=== PATIENT | female | born 1995 | race Two or more races ===

== ENCOUNTER 2024-10-26 18:56 | Emergency (ER) | payer SELFPAY ==
[2024-10-26 19:00] VITALS: BP 139/99; PULSE 100; RESP 18; TEMP 36.6; O2SAT 98
--- NOTE | 2024-10-26 19:21 | ED_ITS ---
HPI - Extremity Injury (Lower) General Chief Complaint: Extremity Injury, Lower Stated Complaint: left ankle in the mornings Time Seen by Provider: 10/26/24 19:02 Source: patient Mode of arrival: ambulatory Limitations: no limitations History of Present Illness HPI Narrative: This is a 29-year-old female who presents to the ED for chief complaint of left anterior ankle pain ongoing over the past couple of weeks. Patient states the pain seems to be worse in the morning. 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 She has concern for possible DVT although has no history of DVT. No risk factors such as recent immobilization, surgery or use of estrogen containing medication. Pain is described as a sharp shooting pain throughout the anterior left ankle into the rouse. Denies swelling, rash, fevers, chills, numbness or weakness. Review of Systems Review of Systems: All systems as dictated in HPI Exam Narrative: GENERAL: Well-appearing, well-nourished, and in no acute distress. HEAD: Normocephalic, atraumatic. EYES: PERRLA and EOMI. ENT: Nares clear, no rhinorrhea or epistaxis. Mucous membranes moist. Oropharynx without tonsillar hypertrophy exudate or other lesions. NECK: Supple. No adenopathy or masses. CHEST: No respiratory distress. Clear to auscultation. No wheezes rales or rhonchi HEART: Regular rate and rhythm. No murmur heard. Normal peripheral pulses. ABDOMEN: Soft, nontender, nondistended, normal active bowel sounds. MSK: Normal range of motion. No edema. No calf tenderness bilaterally. No rash to the lower extremities. Neurovascularly intact bilaterally to the lower extremities. Minimal tenderness to the anterior tibialis distribution on the left anterior ankle, rouse. SKIN: Warm, dry, no rash. NEURO: Alert and oriented x4. No focal deficits. PSYCH: Normal mood and affect. Course Vital Signs Vital signs: Vital Signs Temperature 97.9 F 10/26/24 19:00 Pulse Rate 100 10/26/24 19:00 Respiratory Rate 18 10/26/24 19:00 Blood Pressure 139/99 H 10/26/24 19:00 Pulse Oximetry 98 10/26/24 19:00 Oxygen Delivery Room Air 10/26/24 19:00 Temperature 98.1 F 10/26/24 20:13 Pulse Rate 89 10/26/24 20:13 Respiratory Rate 16 10/26/24 20:13 Blood Pressure 134/87 10/26/24 20:13 Pulse Oximetry 98 10/26/24 20:13 Oxygen Delivery Room Air 10/26/24 19:00 MDM - Extremity Injury (Lower) MDM Narrative Medical decision making narrative: This is a 29-year-old female who presents to the ED for chief complaint of left anterior ankle pain over the past couple of weeks. Vitals are normal. Exam remarkable for the above. She was concern for possible blood clot, however has no clinical signs or symptoms of blood clot. Wells score 0. Presentation consistent with anterior muscle strain versus rouse splints. Patient will be discharged in stable condition. Supportive measures discussed and return precautions given. Patient is understanding and agreeable with plan for discharge with PCP follow-up. Discharge Plan Discharge Clinical Impression: Rouse splints Patient Disposition: Home Condition: Stable Instructions: Antibiotic Form, Muscle Strain (ED) Additional Instructions: Your exam today is reassuring overall. This is most likely an anterior muscle strain. This will resolve on its own. Please rest, ice, elevate the area as needed. Use heat for pain control as well. Use ibuprofen 600 mg every 6 hours as needed for pain. If you have any new or worsening symptoms please return to the ER for further evaluation. Patient Language: Swedish Follow-up/Referrals: PHYSICIAN NOT ON STAFF,NONSTAFF [Primary Care Provider] - Time of Disposition: 19:23
--- OUTSIDE RECORDS SUMMARY | 2024-10-26 19:49 | XMS_ITS | Encounter Summary ---
Author Organization [facility] Address [address] [place] [address] Care Team Providers Care Sports Recruiter Name Role Phone Charla Arriaga MD Primary Care Provider [phone] Encounter Details Date Type Department Care Team (Late st Contact Info) Description 04/24/2017 [facility] [address] [place] [address] Mayra Montana MD Screening for HIV (human immunodeficiency virus); At risk for sexually transmitted disease due to unprotected sex Social History Tobacco Use Types Packs/Day Years Used Date Smoking Tobacco: Never Smokeless Tobacco: Never Alcohol Use Standard Drinks/Week Comments Yes 1 (1 standard drink = 0.6 oz pur e alcohol) socially Sex and Gender Information Value Date Recorded Sex Assigned at Not on file Gender Identity Not on file Sexual Orientation Not on file documented as of this encounter Functional Status Functional Status Response Date of Assess ment Hearing Problems? Yes 12/12/2016 Vision Problems? No 12/12/2016 Difficulty walking? No 12/12/2016 Difficulty dressing or bathing? No 12/12/2016 Problems with daily activities? No 12/12/2016 Cognitive Status Response Date of Assessm ent Memory Problems? No 12/12/2016 documented as of this encounter Progress Notes * Mayra Montana - 04/28/2017 10:25 AM CDT Addressed this per result note for GC/Chlamydia. Please see that note. Pt received results on 04/27via phone. documented in this encounter Plan of Treatment Not on file documented as of this encounter Procedures Procedure Name Priority Date/Time Associated Diagnosis Comments HIV AG AB COMBO Routine 04/24/2017 10:02 AM CDT Screening for HIV (human immunodeficiency virus) At risk for sexually transmitted disease due to unprotected sex TREPONEMA PALLIDUM (SYPHILIS) SCREENING CASCADE Routine 04/24/2017 10:02 AM CDT At risk for sexually transmitted disease due to unprotected sex documented in this encounter Results * T PALLIDUM SCREENING CASCADE (04/24/2017 10:02 AM CDT) Treponemal Antibodies Nonreactive Nonreactive 04/24/2017 6:03 PM CDT [facility] Blood Venipuncture / Unknown 04/24/2017 10:02 AM CDT 04/24/2017 10:02 AM CDT Mayra Montana MD LAB BLOOD ORDERABLES Performing Organization Address [facility] Co de Phone Number [facility] [address] [place], [place] [phone] * HIV AG AB COMBO (04/24/2017 10:02 AM CDT) HIV Antigen Antibody Combo Non-Reacti ve Non-Reacti ve 04/24/2017 6:31 PM CDT [facility] Blood Venipuncture / Unknown 04/24/2017 10:02 AM CDT 04/24/2017 10:02 AM CDT Mayra Montana MD LAB BLOOD ORDERABLES Performing Organization Address [facility] Co de Phone Number [facility] [address] [place] [address] documented in this encounter Visit Diagnoses Diagnosis Screening for HIV (human immunodeficiency virus) Special screening examination for other specified viral diseases At risk for sexually transmitted disease due to unprotected sex documented in this encounter Care Teams Sports Recruiter Relationship Specialty Start Date End Date Charla Arriaga MD [address] [facility] [address] [place] [address] PCP - General Family Practice 06/28/21 documented as of this encounter
--- OUTSIDE RECORDS SUMMARY | 2024-10-26 19:49 | XMS_ITS | Referral Summary ---
Author Organization [facility] Address [address] [place] [address] Care Team Providers Care Devulcanizer Tender Name Role Phone Pcp-Interviewed, [place] [facility] Primar y Care Provider Allergies No known active allergies Medications valACYclovir (VALTREX) 1 gram PO tablet Take 2,000 mg by mouth. 07/02/2021 Active Active Problems Problem Noted Date Diagnosed Date Sensorineural hearing loss ( SNHL) of right ear with unrestricted hearing of left ear 06/18/2016 Social History Tobacco Use Types Packs/Day Years Used Date Smoking Tobacco: Never Assessed Housing Stability Answer Date Recorded Mortgage Payment Concerns? Not on file 10/17 [address] of [address] Lived in the Last Year Not on f ile 10/17/2021 Unstable Housing? Not on file 10/17/2021 Comments Unknown Sex and Gender Information Value Date Recorded Sex Assigned at Not on file Legal Sex Female 2:59 PM CDT Gender Identity Not on file Sexual Orientation Not on file Last Filed Vital Signs Vital Sign Reading Time Taken Comments Blood Pressure 138/92 10/17/2021 3:09 PM CDT Pulse 85 10/17/2021 3:09 PM CDT Temperature 36.9 C (98.4 F) 10/17/2021 3:09 PM CDT Respiratory Rate 16 10/17/2021 3:09 PM CDT Oxygen Saturation 97% 10/17/2021 3:09 PM CDT Inhaled Oxygen Concentration - - Weight 107 kg (235 lb) 10/17/2021 3:09 PM CDT Height - - Body Mass Index - - Plan of Treatment Not on file Insurance [facility] Care Teams Devulcanizer Tender Relationship Specialty Start Date End Date Pcp-Interviewed, Non [place] [facility] [address] [place] [address] PCP - General 10/17/21
--- OUTSIDE RECORDS SUMMARY | 2024-10-26 19:49 | XMS_ITS | Encounter Summary ---
Author Organization [facility] Address [address] [place] [address] Care Team Providers Care Senior Front End Developer Name Role Phone Charla Arriaga MD Primary Care Provider [phone] Encounter Details Date Type Department Care Team (Late st Contact Info) Description 05/06/2017 [facility] [address] [place] [address] Mayra Montana MD Chlamydial infection Social History Tobacco Use Types Packs/Day Years [...] as of this encounter Progress Notes * Yamilka West RN - 05/11/2017 6:55 PM CST [facility] message sent. Current MyChart use confirmed by report in [facility]. ATE BANKER * Mayra Montana - 05/08/2017 1:04 PM CDT Test shows treatment of chlamydia successful. Please notify pt. documented in this encounter Plan of Treatment Not on file documented as of this encounter Procedures Procedure Name Priority Date/Time Associated Diagnosis Comments CHLAMYDIA/GONOCOCCUS, NUCLEIC ACID AMPLIFICATION Routine 05/06/2017 1:54 PM CDT Chlamydial infection documented in this encounter Results * CHLAMYDIA/GONOCOCCUS, ARIN (05/06/2017 1:54 PM CDT) Chlamydia Trachomatis Amplified RNA Negative Negative 05/07/2017 2:32 PM CDT [facility] Neisseria Gonorrhoeae Amplified RNA Negative Negative 05/07/2017 2:32 PM CDT [facility] Chlam/GC Source Urine 7 2:32 PM CDT [facility] Other URINE SPECIMEN / Unknown 05/06/2017 1:54 PM CDT 05/06/2017 1:54 PM CDT Narrative [facility] - 05/07/2017 2:32 PM CDT This test is a modified FDA-approved assay and its performance characteristics determined by [facility]. Results should be interpreted in conjunction with patient's clinical findings. This laboratory is certified under the Clinical Laboratory Improvement Amendments of 1988 (CLIA-88) as qualified to perform high complexity clinical laboratory testing. Mayra Montana MD MICROBIOLOGY ORDERAB LES [facility] [address] [place] [address] documented in this encounter Visit Diagnoses Diagnosis Chlamydial infection Unspecified chlamydial infection, in conditions classified elsewhere and of unspecified site documented in this encounter Care Teams Senior Front End Developer Relationship Specialty Start Date End Date Charla Arriaga MD [address] [place], [place] [phone] PCP - General Family Practice 06/28/21 documented as of this encounter
--- OUTSIDE RECORDS SUMMARY | 2024-10-26 19:49 | XMS_ITS | Encounter Summary ---
Author Organization [facility] Address [address] [place] [address] Care Team Providers Care Mold Filling Operator Name Role Phone Charla Arriaga MD Primary Care Provider [phone] Encounter Details Date Type Department Care Team (Late st Contact Info) Description 04/29/2017 Orders Only Infectious Disease - [facility] [address] [place] [address] Ambrosio Gaspar MD LTBI (latent tuberculosis infection) Social History Tobacco Use Types Packs/Day Years [...] No 12/12/2016 documented as of this encounter Plan of Treatment Not on file documented as of this encounter Procedures Procedure Name Priority Date/Time Associated Diagnosis Comments COMPLETE BLOOD COUNT (CBC) WITH DIFFERENTIAL Routine 04/29/2017 7:18 AM CDT LTBI (latent tuberculosis infection) COMPREHENSIVE METABOLIC PANEL Routine 04/29/2017 7:18 AM CDT LTBI (latent tuberculosis infection) CBC WITH DIFFERENTIAL WITH PLATELET Routine 04/29/2017 7:18 AM CDT LTBI (latent tuberculosis infection) documented in this encounter Results * (ABNORMAL) CBC W/ DIFFERENTIAL (04/29/2017 7:18 AM CDT) WBC 8.55 4.00 - 13.00 10*3/uL 04/29/2017 8:19 AM CDT [facility] RBC 5.21(H) 3.80 - 5.10 10*6/uL 04/29/2017 8:19 AM CDT [facility] Hemoglobin 14.4 12.0 - 16.0 g/dL 04/29/2017 8:19 AM CDT [facility] Hematocrit 43.0 34.0 - 50.0 % 04/29/2017 8:19 AM CDT [facility] MCV 82.5 81.0 - 100.0 fL 04/29/2017 8:19 AM CDT [facility] MCH 27.6 27.0 - 33.2 pg 04/29/2017 8:19 AM CDT [facility] MCHC 33.5 31.0 - 37.0 g/dL 04/29/2017 8:19 AM CDT [facility] Platelet Count 286 150 - 450 10*3/uL 04/29/2017 8:19 AM CDT [facility] RDW 13.6 11.5 - 16.0 % 04/29/2017 8:19 AM CDT [facility] MPV 10.4 7.0 - 11.5 fL 04/29/2017 8:19 AM CDT [facility] Neutrophils Absolute 4.54 1.30 - 6.70 10 3/ L 04/29/2017 8:19 AM CDT [facility] Lymphocytes Absolute 3.08 0.90 - 4.00 10*3/uL 04/29/2017 8:19 AM CDT [facility] Monocytes Absolute 0.63(H) 0.10 - 0.60 10*3/uL 04/29/2017 8:19 AM CDT [facility] Eosinophils Absolute 0.26 0.00 - 0.30 10*3/uL 04/29/2017 8:19 AM CDT [facility] Basophils Absolute 0.04 0.00 - 0.10 10*3/uL 04/29/2017 8:19 AM CDT [facility] nRBC Absolute 0.000 0.000 - 0.012 10*3/uL 04/29/2017 8:19 AM CDT [facility] Neutrophils % 53.1 % 04/29/2017 8:19 AM CDT [facility] Lymphocytes % 36.0 % 04/29/2017 8:19 AM CDT [facility] Monocytes % 7.4 % 04/29/2017 8:19 AM CDT [facility] Eosinophils % 3.0 % 04/29/2017 8:19 AM CDT [facility] Basophils % 0.5 % 04/29/2017 8:19 AM CDT [facility] nRBC/100 WBC 0.00 /100WBC 04/29/2017 8:19 AM CDT [facility] Blood Venipuncture / Unknown 04/29/2017 7:18 AM CDT 04/29/2017 7:18 AM CDT Ambrosio Gaspar MD LAB BLOOD ORDERABLES [facility] [address] [phone] * (ABNORMAL) COMP METABOLIC PANEL (14) (04/29/2017 7:18 AM CDT) Glucose 105(H) 70 - 99 mg/dL 04/29/2017 8:20 AM CDT [facility] Blood Urea Nitrogen 13 8 - 20 mg/dL 04/29/2017 8:20 AM CDT [facility] Creatinine 0.89 0.55 - 1.02 mg/dL 04/29/2017 8:20 AM CDT [facility] Comment:Traceable to IDMS Sodium 138 136 - 144 mmol/L 04/29/2017 8:20 AM CDT [facility] Potassium 4.3 3.6 - 5.1 mmol/L 04/29/2017 8:20 AM CDT [facility] Chloride 102 101 - 111 mmol/L 04/29/2017 8:20 AM CDT [facility] Carbon Dioxide 29.7 22.0 - 32.0 mmol/L 04/29/2017 8:20 AM CDT [facility] Corrected Calcium 9.5 8.3 - 10.3 mg/dL 04/29/2017 8:20 AM CDT [facility] Comment:Corrected Calcium Fo rmula: ((4.0 - Albumin) x 0.8) + Calcium) Note: Calculation is only valid when Albumin is less than 4.0 g/dL Total Protein 8.5(H) 6.1 - 8.3 g/dL 04/29/2017 8:20 AM CDT [facility] Albumin 3.9 3.5 - 4.8 g/dL 04/29/2017 8:20 AM CDT [facility] Bilirubin, Total 0.30 0.10 - 2.00 mg/dL 04/29/2017 8:20 AM CDT [facility] Alkaline Phosphatase 66 52 - 144 U/L 04/29/2017 8:20 AM CDT [facility] AST 20 15 - 41 U/L 04/29/2017 8:20 AM CDT [facility] ALT 34 14 - 54 U/L 04/29/2017 8:20 AM CDT [facility] GFR CKD-EPI 93.60 >=60.00 mL/min/1.7 3 m 04/29/2017 8:20 AM CDT [facility] Comment: Estimated GFR units: mL/min/1.73 square meters eGFR calculated by the CKD-EPI equation. Blood Venipuncture / Unknown 04/29/2017 7:18 AM CDT 04/29/2017 7:18 AM CDT Ambrosio Gaspar MD LAB BLOOD ORDERABLES Performing Organization Address City/State/[facility] [[email or web address]] Co de Phone Number [facility] [address] [place] [address] documented in this encounter Visit Diagnoses Diagnosis LTBI (latent tuberculosis infection) Nonspecific reaction to tuberculin skin test without active tuberculosis documented in this encounter Care Teams Mold Filling Operator Relationship Specialty Start Date End Date Charla Arriaga MD [address] [facility] [address] [place] [address] PCP - General Family Practice 06/28/21 documented as of this encounter
--- OUTSIDE RECORDS SUMMARY | 2024-10-26 19:49 | XMS_ITS | Encounter Summary ---
Author Organization [facility] Address [address] [place] [address] Care Team Providers Care Oil Lease Broker Name Role Phone Charla Arriaga MD Primary Care Provider [phone] Encounter Details Date Type Department Care Team (Late st Contact Info) Description 05/01/2017 Orders Only Infectious Disease - [facility] [address] [place] [address] Ambrosio Gaspar MD LTBI (latent tuberculosis infection) [...] Procedure Name Priority Date/Time Associated Diagnosis Comments URINALYSIS, ROUTINE Routine 05/01/2017 7:09 AM CDT LTBI (latent tuberculosis infection) documented in this encounter Results * URINALYSIS, ROUTINE (05/01/2017 7:09 AM CDT) Urine Color Yellow Yellow 05/01/2017 1:36 PM CDT [facility] Clarity Urine Clear Clear 05/01/2017 1:36 PM CDT [facility] Spec [place] 1.021 1.001 - 1.030 05/01/2017 1:36 PM CDT [facility] Glucose Urine Negative Negative mg/dl 05/01/2017 1:36 PM CDT [facility] Bilirubin Urine Negative Negative 7 1:36 PM CDT [facility] Ketones Urine Negative Negative mg/dL 05/01/2017 1:36 PM CDT [facility] Blood Urine Negative Negative 05/01/2017 1:36 PM CDT [facility] pH Urine 5.0 4.5 - 8.0 05/01/2017 1:36 PM CDT [facility] Protein Urine Negative Negative mg/dl 05/01/2017 1:36 PM CDT [facility] Urobilinogen Urine <2.0 0.2 - 2.0 mg/dL 05/01/2017 1:36 PM CDT [facility] Nitrite Urine Negative Negative 05/01/2017 1:36 PM CDT [facility] Leukocyte Esterase Urine Negative Negative 05/01/2017 1:36 PM CDT [facility] Microscopic Microscopic not indicated 05/01/2017 1:36 PM CDT [facility] Urine 05/01/2017 7:09 AM CDT 05/01/2017 7:09 AM CDT Ambrosio Gaspar MD URINE ORDERABLES Performing Organization Address City/State/[facility] Co de Phone Number [facility] [address] [place] [address] documented in this encounter Visit Diagnoses Diagnosis LTBI (latent tuberculosis infection) Nonspecific reaction to tuberculin skin test without active tuberculosis documented in this encounter Care Teams Oil Lease Broker Relationship Specialty Start Date End Date Charla Arriaga MD [address] [facility] [address] [place] [address] PCP - General Family Practice 06/28/21 documented as of this encounter
--- OUTSIDE RECORDS SUMMARY | 2024-10-26 19:50 | XMS_ITS | Encounter Summary ---
Author Organization [facility] Address [address] [place] [address] Care Team Providers Care Gas Attendant Name Role Phone Charla Arriaga MD Primary Care Provider [phone] Encounter Details Date Type Department Care Team (Late st Contact Info) Description 06/07/2016 [facility] [address] [place] [address] Mayra Montana MD Encounter for screening for lipid disorder; Screening for disorder of blood and blood-forming organs; Screening for endocrine/metabolic/immun ity disorders; Thyroid disorder screen; Screening for HIV (human immunodeficiency virus) Social History Tobacco Use Types Packs/Day Years Used Date Smoking Tobacco: Never Smokeless Tobacco: Never Alcohol Use Standard Drinks/Week Comments Yes 0 (1 standard drink = 0.6 oz pur e alcohol) socially Sex and Gender Information Value Date Recorded Sex Assigned at Not on file Gender Identity Not on file Sexual Orientation Not on file documented as of this encounter Functional Status Functional Status Response Date of Assess ment Hearing Problems? No 06/06/2016 Vision Problems? No 06/06/2016 Difficulty walking? No 06/06/2016 Difficulty dressing or bathing? No 06/06/2016 Problems with daily activities? No 06/06/2016 Cognitive Status Response Date of Assessm ent Memory Problems? No 06/06/2016 documented as of this encounter Progress Notes * Oly Lala RN - 06/14/2016 6:27 AM CSTQusidney Note: This has been taken care of through pt carolynemil already on 06.11 KILN AND RECAUSTICIZING OPERATOR * Mayra Montana - 06/11/2016 10:28 AM CSTQusidney Note: Ordering additional thyroid function test to evaluate abnormal TSH. Please contact pt to go for additional labs, then follow up in office. KILN AND RECAUSTICIZING OPERATOR documented in this encounter Plan of Treatment Not on file documented as of this encounter Procedures Procedure Name Priority Date/Time Associated Diagnosis Comments COMPLETE BLOOD COUNT (CBC) WITH DIFFERENTIAL Routine 06/07/2016 8:17 AM LIME KILN AND RECAUSTICIZING OPERATOR Screening for disorder of blood and blood-forming organs RAPID HIV Routine 06/07/2016 8:17 AM LIME KILN AND RECAUSTICIZING OPERATOR Screening for HIV (human immunodeficiency virus) COMPREHENSIVE METABOLIC PANEL Routine 06/07/2016 8:17 AM LIME KILN AND RECAUSTICIZING OPERATOR Screening for endocrine/metabolic/imm unity disorders LIPID PANEL Routine 06/07/2016 8:17 AM LIME KILN AND RECAUSTICIZING OPERATOR Encounter for screening for lipid disorder THYROID- STIMULATION HORMONE (TSH) Routine 06/07/2016 8:17 AM LIME KILN AND RECAUSTICIZING OPERATOR Thyroid disorder screen CBC WITH DIFFERENTIAL WITH PLATELET Routine 06/07/2016 8:17 AM LIME KILN AND RECAUSTICIZING OPERATOR Screening for disorder of blood and blood-forming organs documented in this encounter Results * (ABNORMAL) CBC W/ DIFFERENTIAL (06/07/2016 8:17 AM LIME KILN AND RECAUSTICIZING OPERATOR) WBC 6.56 4.10 - 11.30 10*3/uL 06/07/2016 8:31 AM LIME KILN AND RECAUSTICIZING OPERATOR [facility] RBC 5.32(H) 3.81 - 5.20 10*6/uL 06/07/2016 8:31 AM LIME KILN AND RECAUSTICIZING OPERATOR [facility] Hemoglobin 14.2 11.6 - 16.0 g/dL 06/07/2016 8:31 AM LIME KILN AND RECAUSTICIZING OPERATOR [facility] Hematocrit 43.7 34.0 - 48.0 % 06/07/2016 8:31 AM LIME KILN AND RECAUSTICIZING OPERATOR [facility] MCV 82.1 79.0 - 99.0 fL 06/07/2016 8:31 AM LIME KILN AND RECAUSTICIZING OPERATOR [facility] MCH 26.7 26.0 - 32.5 pg 06/07/2016 8:31 AM LIME KILN AND RECAUSTICIZING OPERATOR [facility] MCHC 32.5 31.8 - 36.0 g/dL 06/07/2016 8:31 AM LIME KILN AND RECAUSTICIZING OPERATOR [facility] Platelet Count 236 145 - 450 10*3/uL 06/07/2016 8:31 AM LIME KILN AND RECAUSTICIZING OPERATOR [facility] RDW 13.1 11.2 - 14.4 % 06/07/2016 8:31 AM LIME KILN AND RECAUSTICIZING OPERATOR [facility] MPV 9.8 7.0 - 11.5 fL 06/07/2016 8:31 AM LIME KILN AND RECAUSTICIZING OPERATOR [facility] Neutrophils Absolute 3.69 1.70 - 8.50 10 3/ L 06/07/2016 8:31 AM LIME KILN AND RECAUSTICIZING OPERATOR [facility] Lymphocytes Absolute 2.16 0.80 - 4.50 10*3/uL 06/07/2016 8:31 AM LIME KILN AND RECAUSTICIZING OPERATOR [facility] Monocytes Absolute 0.46 0.20 - 0.70 10*3/uL 06/07/2016 8:31 AM LIME KILN AND RECAUSTICIZING OPERATOR [facility] Eosinophils Absolute 0.22 0.00 - 0.40 10*3/uL 06/07/2016 8:31 AM LIME KILN AND RECAUSTICIZING OPERATOR [facility] Basophils Absolute 0.03 0.00 - 0.20 10*3/uL 06/07/2016 8:31 AM LIME KILN AND RECAUSTICIZING OPERATOR [facility] nRBC Absolute 0.000 0.000 - 0.012 10*3/uL 06/07/2016 8:31 AM LIME KILN AND RECAUSTICIZING OPERATOR [facility] Neutrophils % 56.2 % 06/07/2016 8:31 AM LIME KILN AND RECAUSTICIZING OPERATOR [facility] Lymphocytes % 32.9 % 06/07/2016 8:31 AM LIME KILN AND RECAUSTICIZING OPERATOR [facility] Monocytes % 7.0 % 06/07/2016 8:31 AM LIME KILN AND RECAUSTICIZING OPERATOR [facility] Eosinophils % 3.4 % 06/07/2016 8:31 AM LIME KILN AND RECAUSTICIZING OPERATOR [facility] Basophils % 0.5 % 06/07/2016 8:31 AM LIME KILN AND RECAUSTICIZING OPERATOR [facility] nRBC/100 WBC 0.00 /100WBC 06/07/2016 8:31 AM LIME KILN AND RECAUSTICIZING OPERATOR [facility] Blood Venipuncture / Unknown 06/07/2016 8:17 AM LIME KILN AND RECAUSTICIZING OPERATOR 06/07/2016 8:17 AM LIME KILN AND RECAUSTICIZING OPERATOR Mayra Montana MD LAB BLOOD ORDERABLES [facility] [address] [phone] * HIV-1/HIV-2 SINGLE ASSAY (06/07/2016 8:17 AM LIME KILN AND RECAUSTICIZING OPERATOR) Pathologist [facility] Rapid HIV Nonreactive Nonreactive 06/07/2016 1:15 PM LIME KILN AND RECAUSTICIZING OPERATOR [facility] Blood Venipuncture / Unknown 06/07/2016 8:17 AM LIME KILN AND RECAUSTICIZING OPERATOR 06/07/2016 8:17 AM LIME KILN AND RECAUSTICIZING OPERATOR Mayra Montana MD LAB BLOOD ORDERABLES Performing Organization Address City/[facility]/ZIP Co de Phone Number [facility] [address] [place] [address] * (ABNORMAL) ASSAY, THYROID STIM HORMONE (06/07/2016 8:17 AM LIME KILN AND RECAUSTICIZING OPERATOR) TSH 3.836(H) 0.358 - 3.74 uIU/mL 06/07/2016 11:36 AM LIME KILN AND RECAUSTICIZING OPERATOR [facility] Blood Venipuncture / Unknown 06/07/2016 8:17 AM LIME KILN AND RECAUSTICIZING OPERATOR 06/07/2016 8:17 AM LIME KILN AND RECAUSTICIZING OPERATOR Mayra Montnaa MD LAB BLOOD ORDERABLES Performing Organization Address City/[facility]/ZIP Co de Phone Number [facility] [address] [phone] * (ABNORMAL) COMP METABOLIC PANEL (14) (06/07/2016 8:17 AM LIME KILN AND RECAUSTICIZING OPERATOR) Glucose 103(H) 65 - 99 mg/dL 06/07/2016 10:06 AM LIME KILN AND RECAUSTICIZING OPERATOR [facility] Blood Urea Nitrogen 10 7 - 18 mg/dL 06/07/2016 10:06 AM LIME KILN AND RECAUSTICIZING OPERATOR [facility] Creatinine 0.79 0.55 - 1.30 mg/dL 06/07/2016 10:06 AM LIME KILN AND RECAUSTICIZING OPERATOR [facility] Comment:Traceable to IDMS Sodium 140 135 - 145 mmol/L 06/07/2016 10:06 AM LIME KILN AND RECAUSTICIZING OPERATOR [facility] Potassium 4.3 3.5 - 5.1 mmol/L 06/07/2016 10:06 AM LIME KILN AND RECAUSTICIZING OPERATOR [facility] Chloride 104 98 - 107 mmol/L 06/07/2016 10:06 AM LIME KILN AND RECAUSTICIZING OPERATOR [facility] Carbon Dioxide 28 21 - 32 mmol/L 06/07/2016 10:06 AM LIME KILN AND RECAUSTICIZING OPERATOR [facility] Corrected Calcium 9.3 8.5 - 10.1 mg/dL 06/07/2016 10:06 AM LIME KILN AND RECAUSTICIZING OPERATOR [facility] Comment:Corrected Calcium Fo rmula: ((4.0 - Albumin) x 0.8) + Calcium) Note: Calculation is only valid when Albumin is less than 4.0 g/dL Total Protein 7.4 6.4 - 8.2 g/dL 06/07/2016 10:06 AM LIME KILN AND RECAUSTICIZING OPERATOR [facility] Albumin 3.8 3.4 - 5.0 g/dL 06/07/2016 10:06 AM LIME KILN AND RECAUSTICIZING OPERATOR [facility] Bilirubin, Total 0.33 0.20 - 1.00 mg/dL 06/07/2016 10:06 AM LIME KILN AND RECAUSTICIZING OPERATOR [facility] Alkaline Phosphatase 81 46 - 116 U/L 06/07/2016 10:06 AM LIME KILN AND RECAUSTICIZING OPERATOR [facility] AST 25 15 - 37 U/L 06/07/2016 10:06 AM LIME KILN AND RECAUSTICIZING OPERATOR [facility] ALT 54 12 - 60 U/L 06/07/2016 10:06 AM LIME KILN AND RECAUSTICIZING OPERATOR [facility] GFR CKD-EPI 108.10 >=60.00 mL/min/1.7 3 m 06/07/2016 10:06 AM LIME KILN AND RECAUSTICIZING OPERATOR [facility] Comment: Estimated GFR units: mL/min/1.73 square meters eGFR calculated by the CKD-EPI equation. Blood Venipuncture / Unknown 06/07/2016 8:17 AM LIME KILN AND RECAUSTICIZING OPERATOR 06/07/2016 8:17 AM LIME KILN AND RECAUSTICIZING OPERATOR Mayra Montana MD LAB BLOOD ORDERABLES [facility] [address] [phone] * (ABNORMAL) LIPID PANEL (06/07/2016 8:17 AM LIME KILN AND RECAUSTICIZING OPERATOR) Triglycerides 242(H) 30 - 150 mg/dL 06/07/2016 10:16 AM LIME KILN AND RECAUSTICIZING OPERATOR [facility] Direct HDL 39(L) 40 - 60 mg/dL 06/07/2016 10:16 AM LIME KILN AND RECAUSTICIZING OPERATOR [facility] Comment:Guidelines for high density lipoprotein (HDL) are adapted from the National Cholesterol Education Program (NCEP).Values >60 mg/dL are considered a negative risk factor for coronary heart disease (CHD) and are considered protective. Risk Factor 4.5 <5.0 06/07/2016 10:16 AM LIME KILN AND RECAUSTICIZING OPERATOR [facility] Cholesterol 177 0 - 200 mg/dL 06/07/2016 10:16 AM LIME KILN AND RECAUSTICIZING OPERATOR [facility] Calculated LDL 89.6 0 - 100 mg/dL 06/07/2016 10:16 AM LIME KILN AND RECAUSTICIZING OPERATOR [facility] Blood Venipuncture / Unknown 06/07/2016 8:17 AM LIME KILN AND RECAUSTICIZING OPERATOR 06/07/2016 8:17 AM LIME KILN AND RECAUSTICIZING OPERATOR Mayra Montana MD LAB BLOOD ORDERABLES Performing Organization Address City/State/[facility] Co de Phone Number [facility] [address] [phone] documented in this encounter Visit Diagnoses Diagnosis Encounter for screening for lipid disorder Screening for disorder of blood and blood-forming organs Screening for unspecified disorder of blood and blood-forming organs Screening for endocrine/metabolic/immunity disorders Screening for other and unspecified endocrine, nutritional, metabolic, and immunity disorders Thyroid disorder screen Screening for thyroid disorder Screening for HIV (human immunodeficiency virus) Special screening examination for other specified viral diseases documented in this encounter Care Teams Gas Attendant Relationship Specialty Start Date End Date Charla Arriaga MD [address] [facility] [address] [place] [address] PCP - General Family Practice 06/28/21 documented as of this encounter
--- OUTSIDE RECORDS SUMMARY | 2024-10-26 19:50 | XMS_ITS | Clinical Summary ---
Author Organization [facility] Address [address] [place] [address] Care Team Providers Care Patient Services Manager Name Role Phone Charla Arriaga MD Primary Care Provider [phone] Allergies Active Allergy Reactions Criticality Noted Date Comments Alcohol HIVES High 08/11/2023 Palpitations and hives wine is okay Medications No known medications Active Problems Problem Noted Date Diagnosed Date Metabolic syndrome X 10/11/2019 At risk for sexually transmi tted disease due to unprotected sex 04/24/2017 LTBI (latent tuberculosis infection) 01/21/2017 Positive QuantiFERON-TB Gold test 12/24/2016 Encounter for [facility] history and [facility] 12/12/2016 Obesity (BMI 30-39.9) 06/24/2016 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 with unrestricted hearing of contralateral ear 06/18/2016 Hearing loss associated with syndrome of right e ar Encounters Date Type Department Care Team Description 08/30/2024 3:30 PM PRICING MANAGER Office Visit Family Medicine - Wagner Quintana [address] [place] [address] Charla Arriaga MD Routine general medical examination at a health care facility (Primary Dx); Screening examination for STI; Screening for disorder of blood and blood-forming organs; Encounter for screening for metabolic disorder; Encounter for screening for lipid disorder; Encounter for screening for endocrine disorder; Screening for thyroid disorder 08/06/2024 Telephone Family Medicine - Avery Dominique, [place] [address] [place] [address] Charla Arriaga MD from Last 3 Months Immunizations Name Administration Dates Next Due FLU VAC QIV SPLIT 3 YRS AND OLDER (66010) 07/02/2021 Flucelvax 0.5 ml Quad MDV 6m+ (17589) 10/11/2019 HEP B Vaccine 01/04/2014 Hpv Virus Vaccine 9 [address] Im 07/02/2021,10/11/2019 ,05/31/2019 Influenza 01/04/2014 Influenza Vaccine Refused 06/24/2016(Deferred: P atient Refused) MMR 01/04/2014,01/04/2014 Meningococcal (Menomune) 01/04/2014 Meningococcal Vaccine 01/04/2014 TDAP 05/03/2024,01/04/2014 Tb Intradermal Test 12/16/2016,12/12/2016 Family History Medical History Relation Comments Heart Disease Maternal Grandfather CABG Hypertension Maternal Grandfather Diabetes Maternal Grandmother Hypertension Maternal Grandmother Cataracts Mother Cancer Neg Thyroid disease Neg Relation Status Comments Father Alive Maternal Grandfather Maternal Grandmother Mother Alive Social History Tobacco Use Types Packs/Day Years Used Date Smoking Tobacco: Never Passive Smoke Exposure: Never Smokeless Tobacco: Never Tobacco Cessation:Counseling Given: Not Answered Alcohol Use Standard Drinks/Week Comments Yes 1 (1 standard drink = 0.6 oz pur e alcohol) less than monthly AUDIT-C Answer Date Recorded Frequency of Alcohol Consumption Monthly or less 05/31/2019 Average Number of Drinks 1 or 2 019 Frequency of Binge Drinking Never 05/08 PHQ-2 Answer Date Recorded PHQ-2 SCORE 0 08/30/2024 Sex and Gender Information Value Date Recorded Sex Assigned at Not on file Gender Identity Not on file Sexual Orientation Not on file Last Filed Vital Signs Vital Sign Reading Time Taken Comments Blood Pressure 134/83 08/30/2024 3:27 PM PRICING MANAGER Pulse 87 08/30/2024 3:27 PM PRICING MANAGER Temperature 36.7 C (98 F) 08/30/2024 3:27 PM PRICING MANAGER Respiratory Rate 16 08/30/2024 3:27 PM PRICING MANAGER Oxygen Saturation 100% 07/02/2021 9:50 AM PRICING MANAGER Inhaled Oxygen Concentration - - Weight 107.9 kg (237 lb 12.8 oz) 08/30/2024 3:27 PM PRICING MANAGER Height 170.2 cm (5' 7 ) 08/30/2024 3:27 PM PRICING MANAGER Body Mass Index 37.24 08/30/2024 3:27 PM PRICING MANAGER Plan of Treatment Health Maintenance Due Date Last Done Comments Pap Smear,1 Year 06/14/2020 06/14/2019, , 04/24/2017 COVID-19 Vaccine ( season) 2024 06/03/2021, 09/29/2020, 09/08/2020 Influenza Vaccine (#1) 2024 , 04/06/2020, 10/11/2019, Additional history exists Annual Depression Screen 08/30/2025 08/30/2024, 03/2019 Annual Physical 08/30/2025 08/30/2024, 05/08, 06/06/2016 Pneumococcal Vaccine: to 49yrs Aged Out No longer eligible based on patient's age to complete this topic Procedures Procedure Name Priority Date/Time Associated Diagnosis Comments PERIODIC PREVENTIVE MED EST PATIENT 18-39 YRS Routine 08/30/2024 4:29 PM PRICING MANAGER Routine general medical examination at a health care facility PAP WITH REFLEX TO HPV WHEN ASC-U, THINPREP Routine 06/14/2019 3:37 PM PRICING MANAGER Screening for cervical cancer from Last 3 Months or Most Recently Relevant to Health Maintenance Results * THINPREP PAP- RFX TO HPV IF ASCU (06/14/2019 3:37 PM PRICING MANAGER) DIAGNOSIS: Comment 06/16/2019 4:07 PM PRICING MANAGER [facility] ([employer]) Comment:NEGATIVE FOR INTRAEP ITHELIAL LESION OR MALIGNANCY. Specimen adequacy: Comment 2018 4:07 PM PRICING MANAGER [facility] ([employer]) Comment: Satisfactory for evaluation. Endocervical and/or squamous metaplastic cells (endocervical component) are present. Clinician provided ICD10: Comment 06/16/2019 4:07 PM PRICING MANAGER [facility] ([facility]) Comment:Z12.4 Performed by: Comment 06/16/2019 4:07 PM PRICING MANAGER [facility] ([employer]) Comment:Thompson Mccloud totechnologist (ASCP) . . 06/16/2019 4:07 PM PRICING MANAGER [facility] ([facility]) Note: Comment 06/16/2019 4:07 PM PRICING MANAGER [facility] ([facility]) Comment: The Pap smear is a screening test designed to aid in the detection of premalignant and malignant conditions of the uterine cervix. It is not a diagnostic procedure and should not be used as the sole means of detecting cervical cancer. Both false-positive and false-negative reports do occur. Test Methodology: Comment 019 4:07 PM PRICING MANAGER [facility] ([facility]) Comment: This liquid based ThinPrep(R) pap test was screened with the use of an image guided system. . Comment 06/16/2019 4:07 PM PRICING MANAGER [facility] ([facility]) Comment: The HPV DNA reflex criteria were not met with this specimen result therefore, no HPV testing was performed. Other CERVICAL SWAB / Unknown 06/14/2019 3:37 PM PRICING MANAGER 06/14/2019 3:37 PM PRICING MANAGER Narrative [facility] ([facility]) - 06/16/2019 4:07 PM PRICING MANAGER Performed at: 01 - [facility] [id number] Newsagent: Taylor Blanco MD, Phone: [phone] Specimen Comment: No. of containers..01 ThinPrep Vial Charla Arriaga MD PATHOLOGY/CYTOLOGY O RDERABLES [facility]) from Last 3 Months or Most Recently Relevant to Health Maintenance Care Teams Patient Services Manager Relationship Specialty Start Date End Date Charla Arriaga MD [address] [facility] [address] [place] [address] PCP - General Family Practice 06/28/21
--- OUTSIDE RECORDS SUMMARY | 2024-10-26 19:50 | XMS_ITS | Encounter Summary ---
Author Organization [facility] Address [address] [place] [address] Care Team Providers Care Linux Programmer Name Role Phone Charla Arriaga MD Primary Care Provider [phone] Encounter Details Date Type Department Care Team (Late st Contact Info) Description 12/18/2016 [facility] [address] [place] [address] Mayra Montana MD PPD positive Social History Tobacco Use Types Packs/Day Years [...] as of this encounter Progress Notes * Brianda Ugalde - 08/13/2017 4:16 PM CST Patient had a follow up office visit [facility] * Sneha Vargas - 12/24/2016 4:02 PM CDTQuick Note: Pt called back & was informed of MD message. Patient stated she will f/u with ID as recommended but pt will need her form by next week. Site staff pls f/u, thanks. No future appointments. * Thalia Bates - 12/24/2016 3:52 PM CDTQuick Note: Site can you please inform her when ready thank you * Mayra Montana - 12/24/2016 3:51 PM CDTQuick Note: Right. Pt will need to come pick it up. We will complete it since we did the initial testing. Once she is cleared by ID, they will write a note for her school. * Thalia Bates - 12/24/2016 3:33 PM CDT lmtcb * Ying Alexandre RN - 12/24/2016 3:29 PM CDTQuick Note: MA was transferring pt to nurse for information. Call was disconnected. Result note nurse, please call back. * Thalia Bates - 12/24/2016 3:20 PM CDTQuick Note: She states she brought in a form for school * Mayra Montana - 12/24/2016 3:14 PM CDTQuick Note: ID will see results in Epic. * Thalia Bates - 12/24/2016 3:06 PM CDTQuick Note: Pt informed of TB results she will see ID as directed . Released to my chart per request. She was wondering if she should fruit or nut picker the form and take it with her to ID * Mayra Montana - 12/24/2016 2:59 PM CDTQuick Note: Please contact pt with ID referral for this positive test. Even though she was [facility] in the [facility], and probably was vaccinated with BCG as an , this would only affect the skin test resultsand not the quantiferon gold test. She may need treatment for latent TB. documented in this encounter Plan of Treatment Not on file documented as of this encounter Procedures Procedure Name Priority Date/Time Associated Diagnosis Comments QUANTIFERON-TB GOLD PLUS Routine 12/18/2016 1:34 PM CDT PPD positive documented in this encounter Results * (ABNORMAL) QUANTIFERON TB (12/18/2016 1:34 PM CDT) [facility] Quantiferon TB Gold In-Tube Positive( A) Negative 12/23/2016 12:24 PM CDT [facility] Quantiferon-TB1 Minus NIL 2.50(H) 0.00 - 0.34 IU/mL 12/23/2016 12:24 PM CDT [facility] Quantiferon Mitogen Minus NIL >10.00 IU/mL 12/23/2016 12:24 PM CDT [facility] Quantiferon NIL 0.08 IU/mL 12/23/2016 12:24 PM CDT [facility] Comment: A positive Quantiferon test (QFT) result can suggest and support the diagnosis of tuberculosis disease. ESAT-6, CFP-10 and TB7.7(p4) are present in M. tuberculosis, but infections by other mycobacteria, including M. kansasii, M. szulgai, and M. marinum may also cause positive results. Other diagnostic evaluations (e.g., AFB smear and culture, chest x-ray) besides QFT are needed to confirm tuberculosis disease. A positive QFT result should be followed by further medical evaluation for active tuberculosis disease. (e.g., Acid fast bacilli (AFB) smear and culture, chest x- ray). A false-positive result in the absence of other clinical evidence of TB infection is not uncommon. Refer to: Updated Guidelines for Using Interferon Gamma Release Assays to Detect Mycobacterium tuberculosis Infection --- [place], 2010 (http://www.cdc.gov/mmwr/preview/mmwrhtml/hb6615i4.htm), for information concerning test performance in low-prevalence populations and use in occupational screening. Interferon gamma release is measured for specimens from each of the three collection tubes. A qualitative result (Negative, Positive, or Indeterminate) is based on interpretation of the three values, NIL, MITOGEN minus NIL (MITOGEN-NIL), and TB minus NIL (TB-NIL). The NIL value represents nonspecific reactivity produced by the patient specimen. The MITOGEN-NIL value serves as the positive control for the patient specimen, demonstrating successful lymphocyte activity. The TB-NIL value represents lymphocyte reactivity specifically stimulated by the TB antigen. An overall Negative result does not completely rule out TB infection. Blood Venipuncture / Unknown 12/18/2016 1:34 PM CDT 12/18/2016 1:34 PM CDT Mayra Montana MD LAB BLOOD ORDERABLES Performing Organization Address City/State/[facility] Co de Phone Number [address] [phone] documented in this encounter Visit Diagnoses Diagnosis PPD positive Nonspecific reaction to tuberculin skin test without active tuberculosis documented in this encounter Care Teams Linux Programmer Relationship Specialty Start Date End Date Charla Arriaga MD [address] [facility] [address] [place], [place] [phone] PCP - General Family Practice 06/28/21 documented as of this encounter
--- OUTSIDE RECORDS SUMMARY | 2024-10-26 19:50 | XMS_ITS | Clinical Summary ---
Author Organization [address] [address] Care Team Providers Care Continuous Drier Helper Name Role Phone Unknown, Notinfile Primary Care Provider Unavail able Allergies Active Allergy Reactions Criticality Noted Date Comments Alcohol Hives High 08/11/2023 Palpitations and hives wine is okay Palpitations and hives wine is okay Medications No known medications Active Problems No known active problems Encounters Date Type Department Care Team Description 09/05/2024 11:45 AM MACHINE FARMWORKER Office Visit [facility] Care at [address] [address] Bee Izaguirre NP Right ear pain (Primary Dx) from Last 3 Months Social History Tobacco Use Types Packs/Day Years Used Date Smoking Tobacco: Never Assessed Comments Unknown Sex and Gender Information Value Date Recorded Sex Assigned at Not on file Legal Sex Female 11:14 AM MACHINE FARMWORKER Gender Identity Not on file Sexual Orientation Not on file Obstetrics History Last Filed Vital Signs Vital Sign Reading Time Taken Comments Blood Pressure 126/73 09/05/2024 11:23 AM MACHINE FARMWORKER Pulse 73 09/05/2024 11:23 AM MACHINE FARMWORKER Temperature 36.8 C (98.3 F) 09/05/2024 11:23 AM MACHINE FARMWORKER Respiratory Rate 20 09/05/2024 11:23 AM MACHINE FARMWORKER Oxygen Saturation 99% 09/05/2024 11:23 AM MACHINE FARMWORKER Inhaled Oxygen Concentration - - Weight 108.4 kg (239 lb) 09/05/2024 11:23 AM MACHINE FARMWORKER Height - - Body Mass Index - - Plan of Treatment Health Maintenance Due Date Last Done Comments Cervical Cancer Screening 1996 Depression Screening 1996 Hepatitis C Screening 1996 Varicella Vaccines (1 of 2 - 13+ 2-dose series) 2009 Regular Well Visit/Exam 18-64 2014 Covid-19 Vaccine ( season) 2024 06/03/2021, 09/29/2020, 09/08/2020 Influenza Vaccine (#1) 2024 , 04/06/2020, 10/11/2019, Additional history exists DTaP/Tdap/Td Vaccine (3 - Td or Tdap) 05/03/2034 05/03/2024, 01/04/2014 Hepatitis B Screening Completed 01/04/2014 HPV Vaccines Completed 07/02/2021, 04/0 12/2019, 05/31/2019 Pneumococcal vaccine <65 Aged Out No longer eligible based on patient's age to complete this topic Care Teams Continuous Drier Helper Relationship Specialty Start Date End Date Unknown, Notinfile PCP - General 09/05/24
--- OUTSIDE RECORDS SUMMARY | 2024-10-26 19:50 | XMS_ITS | Encounter Summary ---
Author Organization [facility] Address [address] [place] [address] Care Team Providers Care Research Affiliate Name Role Phone Charla Arriaga MD Primary Care Provider [phone] Encounter Details Date Type Department Care Team (Late st Contact Info) Description 06/18/2016 [facility] Only [facility] [address] [place] [address] Mayra oMntana MD Abnormal TSH Social History Tobacco Use Types Packs/Day Years [...] No 06/06/2016 documented as of this encounter Plan of Treatment Not on file documented as of this encounter Procedures Procedure Name Priority Date/Time Associated Diagnosis Comments THYROID ANTIBODIES Routine 06/18/2016 2: 43 PM GREY GOODS EXAMINER Abnormal TSH TRIIODOTHYRONINE (T3), FREE Routine 06/18/2016 2:43 PM GREY GOODS EXAMINER Abnormal TSH TSH+FREE T4 Routine 06/18/2016 2:43 PM GREY GOODS EXAMINER Abnormal TSH documented in this encounter Results * THYROID ANTIBODIES (06/18/2016 2:43 PM GREY GOODS EXAMINER) Anti-Thyroglobu chari 21 <60 U/mL 06/19/2016 12:31 AM GREY GOODS EXAMINER [facility] Anti-Thyroperox idase <28 <60 U/mL 06/19/2016 12:31 AM GREY GOODS EXAMINER [facility] Blood Venipuncture / Unknown 06/18/2016 2:43 PM GREY GOODS EXAMINER 06/18/2016 2:43 PM GREY GOODS EXAMINER Mayra Montana MD LABORATORY [facility] [address] [place] [address] * FREE T3 (TRIIODOTHYRONINE) (06/18/2016 2:43 PM GREY GOODS EXAMINER) Pathologist [facility] Free T3 3.10 2.18 - 3.98 pg/mL 06/18/2016 5:09 PM GREY GOODS EXAMINER [facility] Blood Venipuncture / Unknown 06/18/2016 2:43 PM GREY GOODS EXAMINER 06/18/2016 2:43 PM GREY GOODS EXAMINER Mayra Montana MD LAB BLOOD ORDERABLES [facility] [address] [place] [address] * TSH+FREE T4 (06/18/2016 2:43 PM GREY GOODS EXAMINER) TSH 2.021 0.358 - 3.74 uIU/mL 06/18/2016 5:09 PM GREY GOODS EXAMINER [facility] Free T4 1.22 0.76 - 1.46 ng/dL 06/18/2016 5:09 PM GREY GOODS EXAMINER [facility] Blood Venipuncture / Unknown 06/18/2016 2:43 PM GREY GOODS EXAMINER 06/18/2016 2:43 PM GREY GOODS EXAMINER Mayra Montana MD LAB BLOOD ORDERABLES [facility] [address] [facility] [place], [place] [id number] [place] [address] documented in this encounter Visit Diagnoses Diagnosis Abnormal TSH Other abnormal clinical finding documented in this encounter Care Teams Research Affiliate Relationship Specialty Start Date End Date Charla Arriaga MD [address] [facility] [address] [place] [address] PCP - General Family Practice 06/28/21 documented as of this encounter
--- OUTSIDE RECORDS SUMMARY | 2024-10-26 19:50 | XMS_ITS | Clinical Summary ---
Author Organization [facility] Address [address] [facility] [place] [address] Care Team Providers Care Home Health Aid Name Role Phone Charla Arriaga MD Primary Care Provider [phone] Allergies Active Allergy Reactions Criticality Noted Date Comments Alcohol HIVES High 08/11/2023 Palpitations and hives wine is okay Medications Fluocinonide 0.05 % External Ointment APPLY TO THE AFFECTED AREA TWICE DAILY NEEDED - do not exceed 2 weeks of consecutive use on the same spot of skin. 30 g 0 Active Additional Information Patient not taking.Reported on 08/12/2023 HYDROcodone-jordi taminophen 5-325 MG Oral TabIndications: Cyst of right ovary Take 1-2 tablets by mouth every 4 (four) hours as needed for Pain. 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 06/18/2016 Hearing loss associated with syndrome of right e ar Immunizations Immunization Administration Dates Next Due FLU VAC QIV SPLIT 3 YRS AND OLDER (55[address]) 07/02/2021 Flucelvax 0.5 Ml Quad Multi-dose Vial 10/11/2019 HEP B Vaccine 01/04/2014 Hpv Virus Vaccine 9 Yaquelin Im 07/02/2021,10/11/2019 ,05/31/2019 Influenza 01/04/2014 Influenza Vaccine Refused 06/24/2016(Deferred: P atient Refused) MMR 01/04/2014 Meningococcal Vaccine 01/04/2014 TDAP 01/04/2014 Tb Intradermal Test 12/16/2016,12/12/2016 Family History Medical History Relation Comments Diabetes Maternal Grandfather Hypertension Maternal Grandfather Diabetes Maternal Grandmother Hypertension Maternal Grandmother Cataracts Mother Cancer Neg Thyroid disease Neg Relation Status Comments Father Alive Maternal Grandfather Maternal Grandmother Mother Alive Social History Tobacco Use Types Packs/Day Years Used Date Smoking Tobacco: Never Smokeless Tobacco: Never Alcohol Use Standard Drinks/Week Comments Yes 1 (1 standard drink = 0.6 oz pur e alcohol) WINE AUDIT-C Answer Date Recorded Frequency of Alcohol Consumption Monthly or less 05/31/2019 Average Number of Drinks 1 or 2 019 Frequency of Binge Drinking Never 05/08 PHQ-2 Answer Date Recorded PHQ-2 SCORE 0 07/03/2021 Interpersonal Safety Answer Date Record ed Feels Physically and Emotionally Safe Not on lucius e 09/04/2024 Physically Hurt by Someone Not on file 09/04 Humiliated or Emotionally Abused by Someone Not on file 09/04/2024 Domestic Safety - Signs of abuse/neglect Not on file 09/04/2024 Domestic Safety - Pt Reported (Most Recent Flow) No 09/04/2024 Comments No Sex and Gender Information Value Date Recorded Sex Assigned at Female 08/12/2023 10:14 AM INSPECTOR BICYCLE Legal Sex Female 10:15 AM INSPECTOR BICYCLE Gender Identity Female 08/12/2023 10:14 AM INSPECTOR BICYCLE Sexual Orientation Not on file Last Filed Vital Signs Vital Sign Reading Time Taken Comments Blood Pressure 172/117 12/31/2023 7:58 PM CDT Pulse 87 12/31/2023 7:58 PM CDT Temperature 36.7 C (98 F) 12/31/2023 7:58 PM CDT Respiratory Rate 18 12/31/2023 7:58 PM CDT Oxygen Saturation 95% 12/31/2023 7:58 PM CDT Inhaled Oxygen Concentration - - Weight 106.6 kg (235 lb) 12/31/2023 7:58 PM CDT Height 170.2 cm (5' 7 ) 12/31/2023 7:58 PM CDT Body Mass Index 36.81 12/31/2023 7:58 PM CDT Plan of Treatment Health Maintenance Due Date Last Done Comments Annual Physical 1996 Pap Smear 06/14/2020 06/14/2019, 04/06, 04/24/2017 DTaP,Tdap,and Td Vaccines (2 - Td or Tdap) 01/05/2024 01/04/2014 COVID-19 Vaccine ( season) 2024 06/03/2021, 09/29/2020, 09/08/2020 Annual Depression Screening 07/07/2024 10/13/2018 Influenza Vaccine (Season Ended) 2025 07/02/2021, 04/06/2020, 10/11/2019, Additional history exists Meningococcal B Vaccine Aged Out No l onger eligible based on patient's age to complete this topic Pneumococcal Vaccine: to 50yrs Aged Out No longer eligible based on patient's age to complete this topic Procedures Procedure Name Priority Date/Time Associated Diagnosis Comments THINPREP PAP- RFX TO HPV IF ASCU Routine 06/14/2019 3:37 PM INSPECTOR BICYCLE Screening for cervical cancer from Last 3 Months or Most Recently Relevant to Health Maintenance Results * Thinprep Pap- rfx to HPV if ASCU (06/14/2019 3:37 PM INSPECTOR BICYCLE) DIAGNOSIS: Comment 06/16/2019 4:07 PM INSPECTOR BICYCLE [facility] ([email or web address]) Comment:NEGATIVE FOR INTRAEP ITHELIAL LESION OR MALIGNANCY. Specimen adequacy: Comment 2018 4:07 PM INSPECTOR BICYCLE [facility] ([email or web address]) Comment: Satisfactory for evaluation. Endocervical and/or squamous metaplastic cells (endocervical component) are present. Clinician provided ICD10: Comment 06/16/2019 4:07 PM INSPECTOR BICYCLE [facility] ([email or web address]) Comment:Z12.4 Performed by: Comment 06/16/2019 4:07 PM INSPECTOR BICYCLE [facility] (BEAKER) Comment:Thompson Mccloud totechnologist (ASCP) . . 06/16/2019 4:07 PM INSPECTOR BICYCLE [facility] (BEAKER) Note: Comment 06/16/2019 4:07 PM INSPECTOR BICYCLE [facility] (BEAKER) Comment: The Pap smear is a screening test designed to aid in the detection of premalignant and malignant conditions of the uterine cervix. It is not a diagnostic procedure and should not be used as the sole means of detecting cervical cancer. Both false-positive and false-negative reports do occur. Test Methodology: Comment 019 4:07 PM INSPECTOR BICYCLE [facility] (BEAKER) Comment: This liquid based ThinPrep(R) pap test was screened with the use of an image guided system. . Comment 06/16/2019 4:07 PM INSPECTOR BICYCLE [facility] ([email or web address]) Comment: The HPV DNA reflex criteria were not met with this specimen result therefore, no HPV testing was performed. Other CERVICAL SWAB / Unknown 06/14/2019 3:37 PM INSPECTOR BICYCLE 06/14/2019 3:37 PM INSPECTOR BICYCLE Narrative [facility] (BE[facility]) - 06/16/2019 4:07 PM INSPECTOR BICYCLE Performed at: 01 - [facility] [address] [id number] Laminating Machine Feeder: Taylor Blanco MD, Phone: [phone] Specimen Comment: No. of containers..01 ThinPrep Vial Charla Arriaga MD PATHOLOGY/CYTOLOGY ORDERABLES F inal Result [facility] ([facility]) from Last 3 Months or Most Recently Relevant to Health Maintenance Insurance [employer] [facility] Care Teams Home Health Aid Relationship Specialty Start Date End Date Charla Arriaga MD [address] [facility] [address] [place] [address] PCP - General Family Practice 06/28/21
--- OUTSIDE RECORDS SUMMARY | 2024-10-26 19:50 | XMS_ITS | Referral Summary ---
Author Organization [facility] Address [address] [facility] [place] [address] Care Team Providers Care Concrete Curer Name Role Phone Charla Arriaga MD Primary Care Provider [phone] Allergies Active Allergy Reactions Criticality Noted Date [...] VAC QIV SPLIT 3 YRS AND OLDER (14000) 07/02/2021 Flucelvax 0.5 Ml Quad Multi-dose Vial 10/11/2019 HEP B Vaccine 01/04/2014 Hpv Virus Vaccine 9 Yaquelin Im 07/02/2021,10/11/2019 ,05/31/2019 Influenza 01/04/2014 Influenza Vaccine Refused 06/24/2016(Deferred: P atient Refused) MMR 01/04/2014 Meningococcal Vaccine 01/04/2014 TDAP 01/04/2014 Tb Intradermal Test 12/16/2016,12/12/2016 Social History Tobacco Use Types Packs/Day Years [...] Sex Assigned at Female 08/12/2023 10:14 AM DRIVER RECRUITER Legal Sex Female 10:15 AM DRIVER RECRUITER Gender Identity Female 08/12/2023 10:14 AM DRIVER RECRUITER Sexual Orientation Not on file Last Filed [...] Mass Index 36.81 12/31/2023 7:58 PM CDT Functional Status * Hearing Problems? Answer Date of Assessment Author No 07/21/2017 9:20 AM Brit Sarabia CMA * Vision Problems? Answer Date of Assessment Author No 07/21/2017 9:20 AM Brit Sarabia CMA * Difficulty walking? Answer Date of Assessment Author No 07/21/2017 9:20 AM Brit Sarabia CMA * Difficulty dressing or bathing? Answer Date of Assessment Author No 07/21/2017 9:20 AM Brit Sarabia CMA * Problems with daily activities? Answer Date of Assessment Author No 07/21/2017 9:20 AM Brit Sarabia CMA Mental Status * Memory Problems? Answer Entry Date Author No 07/21/2017 9:20 AM Brit Sarabia CMA Plan of Treatment Not on file Procedures Procedure Name Priority Date/Time Associated Diagnosis Comments THINPREP PAP- RFX TO HPV IF ASCU Routine 06/14/2019 3:37 PM DRIVER RECRUITER Screening for cervical cancer from Last 3 Months or Most Recently Relevant to Health Maintenance Results * Thinprep Pap- rfx to HPV if ASCU (06/14/2019 3:37 PM DRIVER RECRUITER) DIAGNOSIS: Comment 06/16/2019 4:07 PM DRIVER RECRUITER [facility] ([email or web address]) Comment:NEGATIVE FOR INTRAEP ITHELIAL LESION OR MALIGNANCY. Specimen adequacy: Comment 2018 4:07 PM DRIVER RECRUITER [facility] (BEAKER) Comment: Satisfactory for evaluation. Endocervical and/or squamous metaplastic cells (endocervical component) are present. Clinician provided ICD10: Comment 06/16/2019 4:07 PM DRIVER RECRUITER [facility] (BEAKER) Comment:Z12.4 Performed by: Comment 06/16/2019 4:07 PM DRIVER RECRUITER [facility] (BEAKER) Comment:Thompson Mccloud totechnologist (ASCP) . . 06/16/2019 4:07 PM DRIVER RECRUITER [facility] (BEAKER) Note: Comment 06/16/2019 4:07 PM DRIVER RECRUITER [facility] (BEAKER) Comment: The Pap smear is a screening test designed to aid in the detection of premalignant and malignant conditions of the uterine cervix. It is not a diagnostic procedure and should not be used as the sole means of detecting cervical cancer. Both false-positive and false-negative reports do occur. Test Methodology: Comment 019 4:07 PM DRIVER RECRUITER [facility] ([facility]) Comment: This liquid based ThinPrep(R) pap test was screened with the use of an image guided system. . Comment 06/16/2019 4:07 PM DRIVER RECRUITER [facility] ([facility]) Comment: The HPV DNA reflex criteria were not met with this specimen result therefore, no HPV testing was performed. Other CERVICAL SWAB / Unknown 06/14/2019 3:37 PM DRIVER RECRUITER 06/14/2019 3:37 PM DRIVER RECRUITER Narrative [facility] ([facility]) - 06/16/2019 4:07 PM DRIVER RECRUITER Performed at: - [facility] [id number] [employer] Site Manager: Taylor Blanco MD, Phone: [phone] Specimen Comment: No. of containers..01 ThinPrep Vial us Charla Arriaga MD PATHOLOGY/CYTOLOGY ORDERABLES F inal Result [facility]) from Last 3 Months or Most Recently Relevant to Health Maintenance Insurance [employer] [facility] PLAN [facility] PLANS Care Teams Concrete Curer Relationship Specialty Start Date End Date Charla Arriaga MD [address] [place] [address] PCP - General Family Practice 06/28/21
--- OUTSIDE RECORDS SUMMARY | 2024-10-26 19:50 | XMS_ITS | Referral Summary ---
Author Organization [address] [address] Care Team Providers Care Overhead Door Technician Name Role Phone Unknown, Notinfile Primary Care Provider Unavail able Encounters Date Type Department Care Team Description 09/05/2024 11:45 AM DIRECTOR ASSET Office Visit [facility] Convenient Care at [address] [address] Bee Izaguirre NP Right ear pain (Primary Dx) from Last 3 Months Allergies Active Allergy Reactions Criticality Noted Date Comments Alcohol Hives High 08/11/2023 Palpitations and hives wine is okay Palpitations and hives wine is okay Medications No known medications Active Problems No known active problems Social History Tobacco Use Types Packs/Day Years Used Date Smoking Tobacco: Never Assessed Comments Unknown Sex and Gender Information Value Date Recorded Sex Assigned at Not on file Legal Sex Female 11:14 AM DIRECTOR ASSET Gender Identity Not on file Sexual Orientation Not on file Last Filed Vital Signs Vital Sign Reading Time Taken Comments Blood Pressure 126/73 09/05/2024 11:23 AM DIRECTOR ASSET Pulse 73 09/05/2024 11:23 AM DIRECTOR ASSET Temperature 36.8 C (98.3 F) 09/05/2024 11:23 AM DIRECTOR ASSET Respiratory Rate 20 09/05/2024 11:23 AM DIRECTOR ASSET Oxygen Saturation 99% 09/05/2024 11:23 AM DIRECTOR ASSET Inhaled Oxygen Concentration - - Weight 108.4 kg (239 lb) 09/05/2024 11:23 AM DIRECTOR ASSET Height - - Body Mass Index - - Plan of Treatment Not on file Care Teams Overhead Door Technician Relationship Specialty Start Date End Date Unknown, Notinfile PCP - General 09/05/24
--- OUTSIDE RECORDS SUMMARY | 2024-10-26 19:50 | XMS_ITS | Clinical Summary ---
Author Organization [facility] Address [address] [place] [address] Care Team Providers Care Chef Name Role Phone Pcp-Interviewed, Non [place] [facility] Primar y Care Provider [...] Health Maintenance Due Date Last Done Comments HIV Screening 1996 Hepatitis C Screening 1996 Screen for Cervical Cancer 1996 DTaP,Tdap and Td Vaccines (2 - Td or Tdap) 01/05/2024 01/04/2014 COVID-19 Vaccine (4 - 2023-2 5 season) 2024 06/03/2021, 09/29/2020, 09/08/2020 Influenza Vaccine (Season Ended) 2025 07/02/2021, 04/06/2020, 01/04/2014 Meningococcal B Aged Out No longer el igible based on patient's age to complete this topic Pneumococcal 7-64 Aged Out No longer eligible based on patient's age to complete this topic RSV Vaccine (Pediatric) Aged Out No l onger eligible based on patient's age to complete this topic Insurance [facility] Care Teams Chef Relationship Specialty Start Date End Date Pcp-Interviewed, Non [place] [facility] [address] [place] [address] PCP - General 10/17/21
--- OUTSIDE RECORDS SUMMARY | 2024-10-26 19:50 | XMS_ITS | Encounter Summary ---
Author Organization [facility] Address [address] [place] [address] Care Team Providers Care Income Tax Analyst Name Role Phone Charla Arriaga MD Primary Care Provider [phone] Encounter Details Date Type Department Care Team (Late st Contact Info) Description 10/11/2019 Orders Only Family Medicine - Wagner Quintana [address] [place] [address] Charla Arriaga MD [address] [place] [address] Immunity status testing Social History Tobacco Use Types Packs/Day Years Used Date Smoking Tobacco: Never Smokeless Tobacco: Never Alcohol Use Standard Drinks/Week Comments Yes 1 (1 standard drink = 0.6 oz pur e alcohol) less than monthly AUDIT-C Answer Date Recorded Frequency of Alcohol Consumption Monthly or less 05/31/2019 Average Number of Drinks 1 or 2 019 Frequency of Binge Drinking Never 05/08 Sex and Gender Information Value Date Recorded Sex Assigned at Not on file Gender Identity Not on file Sexual Orientation Not on file COVID-19 Exposure Response Date Recorded In the last month, have you been in contact with someone who was confirmed or suspected to have Coronavirus / COVID-19? No / Unsure 10/11/2019 1:35 PM CDT documented as of this encounter Functional Status Functional Status Response Date of Assess ment Hearing Problems? No 07/21/2017 Vision Problems? No 07/21/2017 Difficulty walking? No 07/21/2017 Difficulty dressing or bathing? No 07/21/2017 Problems with daily activities? No 07/21/2017 Cognitive Status Response Date of Assessm ent Memory Problems? No 07/21/2017 documented as of this encounter Plan of Treatment Not on file documented as of this encounter Procedures Procedure Name Priority Date/Time Associated Diagnosis Comments MEASLES (RUBEOLA) ANTIBODIES, IGG, IMMUNITY Routine 10/11/2019 1:14 PM CDT Immunity status testing VARICELLA IGG (COLLEGE TITER) Routine 10/11/2019 1:14 PM CDT Immunity status testing MEASLES (RUBEOLA) ANTIBODIES, IGG, IMMUNITY Routine 10/11/2019 1:14 PM CDT Immunity status testing MUMPS ANTIBODIES, IGG, IMMUNITY Routine 10/11/2019 1:14 PM CDT Immunity status testing HEPATITIS B SURFACE ANTIBODY, QUALITATIVE Routine 10/11/2019 1:14 PM CDT Immunity status testing RUBELLA ANTIBODIES, IGG Routine 10/11/2019 1:14 PM CDT Immunity status testing documented in this encounter Results * RUBELLA, IGG (10/11/2019 1:14 PM CDT) Rubella IgG Qualitative Positive Positive 10/11/2019 5:43 PM CDT [facility] Rubella IgG Quantitative 46.0 IU/mL 10/11/2019 5:43 PM CDT [facility] Blood Venipuncture / Unknown 10/11/2019 1:14 PM CDT 10/11/2019 1:14 PM CDT Charla Arriaga MD LAB BLOOD ORDERABLES [facility] [address] [facility] [place] [phone] * MUMPS ANTIBODIES, IGG-IMMUNITY (10/11/2019 1:14 PM CDT) [facility] Mumps IgG Qualitative Positive Positive 10/11/2019 5:11 PM CDT [facility] Mumps IgG Quantitative 3.8 AI 10/11/2019 5:11 PM CDT [facility] Comment: Not Immune/Negative: <=0.8 AI Repeat Testing/Equivocal: 0.9 - 1.0 AI Immune/Positive: >=1.1 AI AI=Antibody Index Blood Venipuncture / Unknown 10/11/2019 1:14 PM CDT 10/11/2019 1:14 PM CDT Charla Arriaga MD LAB BLOOD ORDERABLES Performing Organization Address [facility] de Phone Number [facility] [address] [phone] * RUBEOLA(MEASLES)ANTIBODIES, IGG-IMMUNITY (10/11/2019 1:14 PM CDT) [facility] Measles (Rubeola) IgG Qualitative Positive Positive 10/11/2019 5:11 PM CDT [facility] Measles (Rubeola) IgG Quantitative 2.2 AI 10/11/2019 5:11 PM CDT [facility] Comment: Not Immune/Negative: <=0.8 AI Repeat Testing/Equivocal: 0.9 - 1.0 AI Immune/Positive: >=1.1 AI AI=Antibody Index Blood Venipuncture / Unknown 10/11/2019 1:14 PM CDT 10/11/2019 1:14 PM CDT Charla Arriaga MD LAB BLOOD ORDERABLES Performing Organization Address [facility] de Phone Number [facility] [address] [phone] * VARICELLA IGG (COLLEGE TITER) (10/11/2019 1:14 PM CDT) [facility] Varicella zoster Virus IgG Qualitative Positive Positive 10/11/2019 5:11 PM CDT [facility] Varicella zoster Virus IgG Quantitative 5.0 AI 10/11/2019 5:11 PM CDT [facility] Comment: Not Immune/Negative: <=0.8 AI Repeat Testing/Equivocal: 0.9 - 1.0 AI Immune/Positive: >=1.1 AI AI=Antibody Index Blood Venipuncture / Unknown 10/11/2019 1:14 PM CDT 10/11/2019 1:14 PM CDT Charla Arriaga MD LAB BLOOD ORDERABLES Performing Organization Address City/[facility] Co de Phone Number [facility] [address] [phone] * HEPATITIS B SURFACE ANTIBODY (10/11/2019 1:14 PM CDT) Heptatitis B Surface Ab Quant 281.7 >8.5 mIU/mL 10/12/2019 4:22 PM CDT [facility] Comment: Not Immune/Nonreactive: <=8.5 mIU/mL Repeat Testing/Indeterminate: 8.6-11.4 mIU/mL Immune/Reactive: >=11.5 mIU/mL Hepatitis B Surface Antibody Reactive Reactive 10/12/2019 4:22 PM CDT [facility] Blood Venipuncture / Unknown 10/11/2019 1:14 PM CDT 10/11/2019 1:14 PM CDT Charla Arriaga MD LAB BLOOD ORDERABLES [facility] [address] [phone] documented in this encounter Visit Diagnoses Diagnosis Immunity status testing Antibody response examination documented in this encounter Care Teams Income Tax Analyst Relationship Specialty Start Date End Date Charla Arriaga MD [address] [place] [address] PCP - General Family Practice 06/28/21 documented as of this encounter
--- OUTSIDE RECORDS SUMMARY | 2024-10-26 19:50 | XMS_ITS | Encounter Summary ---
Author Organization [facility] Address [address] [place] [address] Care Team Providers Care Traveling Freight Agent Name Role Phone Charla Arriaga MD Primary Care Provider [phone] Encounter Details Date Type Department Care Team (Late st Contact Info) Description 10/07/2019 Orders Only Family Medicine - Wagner Quintana [address] [place] [address] Charla Arriaga MD [address] [place] [address] Routine screening for STI (sexually transmitted infection); Encounter for screening for lipid disorder; Screening for endocrine/metabolic/im munity disorders Social History Tobacco Use Types Packs/Day Years [...] have Coronavirus / COVID-19? No / Unsure 10/07/2019 9:48 AM CDT documented as of this encounter Functional [...] Diagnosis Comments HIV AG AB COMBO Routine 10/07/2019 12:06 PM CDT Routine screening for STI (sexually transmitted infection) HIV AG AB COMBO Routine 10/07/2019 12:06 PM CDT Routine screening for STI (sexually transmitted infection) TREPONEMA PALLIDUM (SYPHILIS) SCREENING CASCADE Routine 10/07/2019 12:06 PM CDT Routine screening for STI (sexually transmitted infection) ALANINE AMINOTRANSFERASE (ALT) Routine 10/07/2019 12:06 PM CDT Screening for endocrine/metaboli c/immunity disorders HEPATITIS C VIRUS (HCV) ANTIBODY Routine 10/07/2019 12:06 PM CDT Routine screening for STI (sexually transmitted infection) LIPID PANEL Routine 10/07/2019 12:06 PM CDT Encounter for screening for lipid disorder BASIC METABOLIC PANEL Routine 10/07/2019 12:06 PM CDT Screening for endocrine/metaboli c/immunity disorders documented in this encounter Results * HIV AG AB COMBO (10/07/2019 12:06 PM CDT) HIV Antigen-Antibod y Qualitative Nonreactive Nonreactive 10/08/2019 2:01 PM CDT [facility] Comment:5TH generation HIV t esting HIV Antigen-Antibod y Quantitative 0.2 1DX 10/08/2019 2:01 PM CDT [facility] Blood Venipuncture / Unknown 10/07/2019 12:06 PM CDT 10/07/2019 12:06 PM CDT Charla Arriaga MD LAB BLOOD ORDERABLES Performing Organization Address City/[facility]/ZIP Co de Phone Number [facility] [address] [phone] * (ABNORMAL) ALT (SGPT) (10/07/2019 12:06 PM CDT) ALT 40(H) 0 - 33 U/L 10/07/2019 12:43 PM CDT [facility] Blood Venipuncture / Unknown 10/07/2019 12:06 PM CDT 10/07/2019 12:06 PM CDT Charla Arriaga MD LAB BLOOD ORDERABLES Performing Organization Address [facility] Co de Phone Number [facility] [address] [phone] * BASIC METABOLIC PANEL (8) (10/07/2019 12:06 PM CDT) Patient Fasting? Yes 10/07/2019 12:40 PM CDT [facility] Sodium 138 136 - 145 mmol/L 10/07/2019 12:40 PM CDT [facility] Potassium 4.39 3.50 - 5.10 mmol/L 10/07/2019 12:40 PM CDT [facility] Chloride 101 98 - 107 mmol/L 10/07/2019 12:40 PM CDT [facility] Carbon Dioxide 27.0 22.0 - 29.0 mmol/L 10/07/2019 12:40 PM CDT [facility] Blood Urea Nitrogen 11.0 6.0 - 20.0 mg/dL 10/07/2019 12:40 PM CDT [facility] Creatinine 0.65 0.50 - 0.90 mg/dL 10/07/2019 12:40 PM CDT [facility] BUN/CREAT Ratio 17.0 10.0 - 20.0 10/07/2019 12:40 PM CDT [facility] Glucose 105 74 - 109 mg/dL 10/07/2019 12:40 PM CDT [facility] Calcium 9.5 8.6 - 10.0 mg/dL 10/07/2019 12:40 PM CDT [facility] GFR CKD-EPI 125.54 >=60.00 mL/min/1.7 3 m 10/07/2019 12:40 PM CDT [facility] Comment: Estimated GFR units: mL/min/1.73 square meters eGFR calculated by the CKD-EPI equation. Blood Venipuncture / Unknown 10/07/2019 12:06 PM CDT 10/07/2019 12:06 PM CDT Charla Arriaga MD LAB BLOOD ORDERABLES [facility] [address] [phone] * (ABNORMAL) LIPID PANEL (10/07/2019 12:06 PM CDT) Patient Fasting? Yes 10/07/19 20 12:43 PM CDT [facility] Triglycerides 294.00(H) <=115.00 mg/dL 10/07/2019 12:43 PM CDT [facility] Direct HDL 37.4(L) >=40 mg/dL 10/07/2019 12:43 PM CDT [facility] Comment:Guidelines for high density lipoprotein (HDL) are adapted from the National Cholesterol Education Program (NCEP).Values >=40 mg/dL are considered a negative risk factor for coronary heart disease (CHD) and are considered protective. Risk Factor 5.5(H) <5.0 10/07/2019 12:43 PM CDT [facility] Cholesterol 204.00(H) <=200.00 mg/dL 10/07/2019 12:43 PM CDT [facility] Calculated LDL 108 <=130 mg/dL 10/07/2019 12:43 PM CDT [facility] Total Chol/HDL Ratio 5 10/07/2019 12:43 PM CDT [facility] Calculated VLDL 59(H) <=30 mg/dL 10/07/2019 12:43 PM CDT [facility] Blood Venipuncture / Unknown 10/07/2019 12:06 PM CDT 10/07/2019 12:06 PM CDT Charla Arriaga MD LAB BLOOD ORDERABLES Performing Organization Address [facility] Co de Phone Number [facility] [address] [phone] * HCV ANTIBODY (10/07/2019 12:06 PM CDT) Hepatitis C Virus Antibody Nonreactive Nonreactive 10/07/2019 1:00 PM CDT [facility] Blood Venipuncture / Unknown 10/07/2019 12:06 PM CDT 10/07/2019 12:06 PM CDT Charla Arriaga MD LAB BLOOD ORDERABLES Performing Organization Address [facility] de Phone Number [facility] [address] [phone] * T PALLIDUM SCREENING CASCADE (10/07/2019 12:06 PM CDT) Syphilis-Total Qualitative Nonreactive Nonreactive 10/08/2019 2:00 PM CDT [facility] Syphilis-Total Quantitative <0.2 AI 10/08/2019 2:00 PM CDT [facility] Blood Venipuncture / Unknown 10/07/2019 12:06 PM CDT 10/07/2019 12:06 PM CDT Charla Arriaga MD LAB BLOOD ORDERABLES Performing Organization Address [facility] Co de Phone Number [facility] [address] [phone] documented in this encounter Visit Diagnoses Diagnosis Routine screening for STI (sexually transmitted infection) Screening examination for venereal disease Encounter for screening for lipid disorder Screening for endocrine/metabolic/immunity disorders Screening for other and unspecified endocrine, nutritional, metabolic, and immunity disorders documented in this encounter Care Teams Traveling Freight Agent Relationship Specialty Start Date End Date Charla Arriaga MD [address] [facility] [address] [place] [address] PCP - General Family Practice 06/28/21 documented as of this encounter
[2024-10-26 20:00] VITALS: BP 134/87; PULSE 89; RESP 16; TEMP 36.7; O2SAT 98
[2024-10-26 20:13] VITALS: BP 134/87; PULSE 89; RESP 16; TEMP 36.7; O2SAT 98
== END 2024-10-26 20:04 | disposition home or self-care (01) ==
LOC: ANHED 19:47
PROVIDERS: Emergency Provider Physician Assistant
DX: S86.892A Other injury of other muscle(s) and tendon(s) at lower leg level, left leg, initial encounter (principal); X50.3XXA Overexertion from repetitive movements, initial encounter
CPT/HCPCS: 99281

== ENCOUNTER 2025-05-02 15:16 | Emergency (ER) | payer BC, SELFPAY ==
--- NOTE | ~2025-05-02 | US_ITS ---
EXAMINATION: US pelvic complete w TV DATE: 05/02/2025 19:06 INDICATION: Vaginal bleeding post-Plan B TECHNIQUE: Multiple transabdominal and endovaginal sonographic images of the pelvis were obtained. COMPARISON: None. FINDINGS: The uterus measures 5.0 x 3.4 x 3.1 cm. The endometrial complex measures 7 mm in thickness. No evident intrauterine gestational sac. There are a few subcentimeter anechoic nabothian cysts at the cervix. The right ovary is not visualized and reportedly surgically absent. The left ovary measures 2.2 x 1.7 x 1.4 cm 1.3 cm anechoic cyst/follicle in the left ovary. Vascular flow is also identified in the left ovary on color Doppler. There is no free fluid in the pelvis. IMPRESSION: 1. Status post right oophorectomy. Otherwise unremarkable pelvic ultrasound with no evident intrauterine gestational sac. Reviewed, dictated and finalized at location A. IMPRESSION: 1. Status post right oophorectomy. Otherwise unremarkable pelvic ultrasound wit h no evident intrauterine gestational sac.
--- NOTE | ~2025-05-02 | CT_ITS ---
EXAMINATION: CT abdomen pelvis w con DATE: 05/02/2025 20:17 INDICATION: Lower abdominal pain TECHNIQUE: Computed tomography (CT) of the abdomen and pelvis was performed with 100 mL Omnipaque-350 intravenous contrast. Automated exposure control and iterative reconstruction technique were employed. The dose-length product was 1134.50 mGy-cm. COMPARISON: None FINDINGS: Lung bases are clear. Heart size is normal. No pericardial or pleural effusion. Liver, gallbladder, spleen, pancreas, bilateral adrenal glands and kidneys are normal. Bowels including the appendix are normal. Bladder, uterus and left adnexa are unremarkable. Right ovary is not visualized and reportedly surgically absent. No free intraperitoneal gas or fluid. No pathologically enlarged abdominal or pelvic lymphadenopathy. L5 spondylolysis with bilateral pars interarticularis defects and 4 mm anterolisthesis on S1. IMPRESSION: 1. No acute intra-abdominal/pelvic process. Reviewed, dictated and finalized at location A.
[2025-05-02 15:34] VITALS: BP 148/67; PULSE 82; RESP 16; TEMP 36.6; O2SAT 99
--- NOTE | 2025-05-02 15:38 | ED_ITS ---
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 Since then the bleeding has become heavier and has had clots with some lightheadedness and weakness. Cramping is low and midline. She is using pads and has gone through 6 today and has reported bleeding through her clothes. LMP was the week of April 18. Denies any chance of prior to taking the Plan B. No urinary complaints of Burning, urgency, frequency or hematuria. 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 Has not taken any OTC meds for the cramping. GENERAL: Well-appearing, well-nourished, obese female in no acute distress. HEAD: Normocephalic, atraumatic. ABDOMINAL: Soft, NT, BS present x4 NEURO: ?Alert and oriented x3. Patient screened in triage and initial orders placed.? ?Additional care and disposition to be based upon?diagnostic testing and treatment. <NE Williamson - Last Filed: 05/02/25 15:43> Source: patient <NE Williamson - Last Filed: 05/02/25 15:43> Mode of arrival: ambulatory <NE Williamson - Last Filed: 05/02/25 15:43> Limitations: no limitations <NE Williamson - Last Filed: 05/02/25 15:43> History of Present Illness HPI Narrative: I agree with the above HPI <Chika Diop APRN - Last Filed: 05/02/25 21:40> Related Data Allergies/Adverse reactions: Allergies Allergy/AdvReac Type Severity Reaction Status Date / Time No Known Allergies Allergy Verified 05/02/25 15:18 <NE Williamson - Last Filed: 05/02/25 15:43> Review of Systems 2 Review of Systems: All systems reviewed & are unremarkable except as noted in HPI and below <Chika Diop APRN - Last Filed: 05/02/25 21:40> Exam 2 Narrative: GENERAL: Well appearing, obese, non-toxic, in no acute distress. HEAD: Normocephalic, atraumatic. NECK: Supple. No adenopathy, no masses. RESPIRATORY: Airway patent, respirations nonlabored. Clear to auscultation bilaterally, no rales, rhonchi, wheezing. CARDIOVASCULAR: Regular rate and rhythm without murmurs, rubs, or gallops. Peripheral pulses 2+ and equal bilaterally. ABDOMINAL: Soft, nontender, nondistended, no hepatosplenomegaly. Normoactive BS. MUSCULOSKELETAL: Moves all extremities. Strength/ROM intact without gross deformities. SKIN: Warm, dry, normal color. No rashes. NEURO: A&O X3. Speech clear. Cranial nerves II-XII intact. No ataxic movements. PSYCHIATRIC: Appropriate mood and affect. Normal interaction. <Chika Diop, CATTLE MANAGER - Last Filed: 05/02/25 21:40> Course Vital Signs Vital signs: Vital Signs Temperature 36.6 C 05/02/25 15:34 Pulse Rate 82 05/02/25 15:34 Respiratory Rate 16 05/02/25 15:34 Blood Pressure 148/67 H 05/02/25 15:34 Pulse Oximetry 99 05/02/25 15:34 Temperature 36.6 C 05/02/25 15:34 Pulse Rate 82 05/02/25 15:34 Respiratory Rate 16 05/02/25 15:34 Blood Pressure 148/67 H 05/02/25 15:34 Pulse Oximetry 99 05/02/25 15:34 <NE Williamson - Last Filed: 05/02/25 15:43> Vital Signs Temperature 36.6 C 05/02/25 15:34 Pulse Rate 82 05/02/25 15:34 Respiratory Rate 16 05/02/25 15:34 Blood Pressure 148/67 H 05/02/25 15:34 Pulse Oximetry 99 05/02/25 15:34 Temperature 36.6 C 05/02/25 15:34 Pulse Rate 82 05/02/25 15:34 Respiratory Rate 16 05/02/25 15:34 Blood Pressure 148/67 H 05/02/25 15:34 Pulse Oximetry 99 05/02/25 15:34 <Chika Diop APRN - Last Filed: 05/02/25 21:40> MDM - Female Genitourinary MDM Narrative Medical decision making narrative: Took Plan B 9 days ago and started bleeding 5 days later. Since then the bleeding has become heavier and has had clots with some lightheadedness and weakness. Cramping is low and midline. She is using pads and has gone through 6 today and has reported bleeding through her clothes. LMP was the week of April 18. Denies any chance of prior to taking the Plan B. No urinary complaints of Burning, urgency, frequency or hematuria. 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 Has not taken any OTC meds for the cramping. Labs Ordered: CBC, CMP, hCG, coags Imaging Ordered: CT abdomen pelvis, pelvic ultrasound Medications Ordered: 1 L normal saline IV bolus Results: Patient's CBC indicates white blood cell count of 43.5. Her CMP indicates an AST of 45 an ALT of 49. Diagnosis: Vaginal bleeding, leukocytosis Consults: OBGYN (outpatient), primary care provider Patient Education/Shared MDM: Results of lab work and imaging shared with patient. She continues to endorse ongoing vaginal bleeding with clot passage. Patient strongly advised to maintain hydration status upon discharge and follow- up with OBGYN and her PCP as soon as possible. She will be discharged home with a prescription for ibuprofen 800 mg every 8 hours. Strict return precautions provided. Patient verbalized understanding and is in agreement with plan. Vital signs stable at time of discharge. All questions answered. <Chika Diop APRN - Last Filed: 05/02/25 21:40> Differential Diagnosis Differential diagnosis: Likely urinary tract infection, ruptured ovarian cyst, dysmenorrhea and other (, uterine mass) <Chika Diop APRN - Last Filed: 05/02/25 21:40> Lab Data Attestation: I reviewed the patient's lab results. <Chika Diop, CATTLE MANAGER - Last Filed: 05/02/25 21:40> Result diagrams: 05/02/25 17:46 05/02/25 16:17 <Aury Loyd APN-C - Last Filed: 05/02/25 15:43> Labs: Lab Results 05/02/25 05/02/25 05/02/25 Range/Units 16:17 16:53 17:02 WBC 41.9 H (4.5-10.0) K/mm3 RBC 4.66 (4.2-5.4) M/mm3 Hgb 12.9 (12.0-15.0) g/dL Hct 39.7 (37.0-47.0) % MCV 85.2 (80-100) fl MCH 27.7 (26-34) pg MCHC 32.5 (32-36) g/dl RDW 15.6 H (11.5-14.5) % Plt Count 215 (150-375) k/mm3 MPV 10.5 H (7.4-10.4) fl Immature Gran % (Auto) Not Reportable Neut % (Auto) Not Reportable Lymph % (Auto) Not Reportable [place] % (Auto) Not Reportable Eos % (Auto) Not Reportable Baso % (Auto) Not Reportable Lymph # (Auto) Not Reportable [place] # (Auto) Not Reportable Eos # (Auto) Not Reportable Baso # (Auto) Not Reportable Abs Immat Gran (auto) Not Reportable Absolute Neuts (auto) Not Reportable Absolute Nucleated RBC Not Reportable Total Counted 100 Neutrophils % (Manual) 58 (46-73) % Band Neutrophils % 11 H (0-6) % Lymphocytes % (Manual) 25.0 (18-44) % Monocytes % (Manual) 2 L (3-9) % Eosinophils % (Manual) 1 (0-4) % Metamyelocytes % 3 % Nucleated RBC % Not Reportable Abs Neuts (Manual) 28.91 H (1.3-6.7) K/mm3 Abs Lymphs (Manual) 10.47 H (1.1-4.5) K/mm3 Abs Monocytes (Manual) 0.83 (0.1-0.90) K/mm3 Absolute Eos (Manual) 0.41 (0.02-0.50) K/mm3 Platelet Estimate Adequate (Adequate) % Immature Plt Fraction 5.3 (0.9-11.2) % Hypochromasia 1+ Anisocytosis 2+ Schistocytes None seen ESR 13 (0-20) mm/hr PT 13.4 (11.1-14.7) Seconds INR 1.0 APTT 34.0 (22.3-36.8) Seconds Sodium 137 (137-145) mmol/L Potassium 4.1 (3.4-5.0) mmol/L Chloride 103 (98-107) mmol/L Carbon Dioxide 26 (22-30) mmol/L Anion Gap 8 (4-12) mmol/L BUN 12 (7-17) mg/dL Creatinine 0.85 (0.7-1.0) mg/dL Estim Creat Clear Calc 108 ml/min Estimated GFR > 60 (59 - ) Glucose 98 (65-110) mg/dL Lactic Acid (0.7-2.0) mmol/L Calcium 8.9 (8.4-10.2) mg/dL Total Bilirubin 0.6 (0.2-1.3) mg/dL AST 45 H (14-36) U/L ALT 49 H (6-35) U/L Alkaline Phosphatase 56 (38-126) U/L C-Reactive Protein Total Protein 8.3 H (6.3-8.2) g/dL Albumin 4.7 (3.5-5.1) g/dL Procalcitonin ng/mL TSH (Reflex) (0.465-4.68) uIU/mL Beta HCG, Quant mIU/ML Urine Color Yellow (Yellow) Urine Appearance Cloudy H (Clear) Urine pH 6.0 (5.0-9.0) Ur Specific Walker 1.021 (1.001-1.035) Urine Protein Negative (Negative) mg/dL Urine Glucose (UA) Negative (Negative) mg/dL Urine Ketones Negative (Negative) mg/dL Ur Blood (Man) 3+ H (Negative) Urine Nitrate Negative (Negative) Urine Bilirubin Negative (Negative) Urine Urobilinogen 1.0 (<2.0) mg/dL Leukocyte Esterase Rfl Negative (Negative) KEYLA/UL Urine RBC >100 H (0-2) /hpf Urine WBC 0-5 (0-3) /hpf Ur Squamous Epith Cells None seen (Few) /hpf Urine Bacteria None seen /hpf Urine Casts 0-2 POC Urine HCG, Qual Negative (Negative) Monoscreen (Negative) Blood Type A Positive 05/02/25 05/02/25 Range/Units 17:46 17:46 WBC 43.5 H (4.5-10.0) K/mm3 RBC 4.59 (4.2-5.4) M/mm3 Hgb 12.6 (12.0-15.0) g/dL Hct 39.1 (37.0-47.0) % MCV 85.2 (80-100) fl MCH 27.5 (26-34) pg MCHC 32.2 (32-36) g/dl RDW 15.8 H (11.5-14.5) % Plt Count 201 (150-375) k/mm3 MPV 10.4 (7.4-10.4) fl Immature Gran % (Auto) Not Reportable Neut % (Auto) Not Reportable Lymph % (Auto) Not Reportable [place] % (Auto) Not Reportable Eos % (Auto) Not Reportable Baso % (Auto) Not Reportable Lymph # (Auto) Not Reportable [place] # (Auto) Not Reportable Eos # (Auto) Not Reportable Baso # (Auto) Not Reportable Abs Immat Gran (auto) Not Reportable Absolute Neuts (auto) Not Reportable Absolute Nucleated RBC Not Reportable Total Counted 100 Neutrophils % (Manual) 56 (46-73) % Band Neutrophils % 11 H (0-6) % Lymphocytes % (Manual) 27.0 (18-44) % Monocytes % (Manual) 2 L (3-9) % Eosinophils % (Manual) 1 (0-4) % Metamyelocytes % 3 % Nucleated RBC % Not Reportable Abs Neuts (Manual) 29.14 H (1.3-6.7) K/mm3 Abs Lymphs (Manual) 11.74 H (1.1-4.5) K/mm3 Abs Monocytes (Manual) 0.87 (0.1-0.90) K/mm3 Absolute Eos (Manual) 0.43 (0.02-0.50) K/mm3 Platelet Estimate Adequate (Adequate) % Immature Plt Fraction (0.9-11.2) % Hypochromasia 1+ Anisocytosis 2+ Schistocytes None seen ESR (0-20) mm/hr PT 13.3 (11.1-14.7) Seconds INR 1.0 APTT 32.3 (22.3-36.8) Seconds Sodium (137-145) mmol/L Potassium (3.4-5.0) mmol/L Chloride (98-107) mmol/L Carbon Dioxide (22-30) mmol/L Anion Gap (4-12) mmol/L BUN (7-17) mg/dL Creatinine (0.7-1.0) mg/dL Estim Creat Clear Calc ml/min Estimated GFR (59 - ) Glucose (65-110) mg/dL Lactic Acid 1.0 (0.7-2.0) mmol/L Calcium (8.4-10.2) mg/dL Total Bilirubin (0.2-1.3) mg/dL AST (14-36) U/L ALT (6-35) U/L Alkaline Phosphatase (38-126) U/L C-Reactive Protein Cancelled < 0.5 Total Protein (6.3-8.2) g/dL Albumin (3.5-5.1) g/dL Procalcitonin 0.1 ng/mL TSH (Reflex) 2.300 (0.465-4.68) uIU/mL Beta HCG, Quant < 2.39 mIU/ML Urine Color (Yellow) Urine Appearance (Clear) Urine pH (5.0-9.0) Ur Specific Walker (1.001-1.035) Urine Protein (Negative) mg/dL Urine Glucose (UA) (Negative) mg/dL Urine Ketones (Negative) mg/dL Ur Blood (Man) (Negative) Urine Nitrate (Negative) Urine Bilirubin (Negative) Urine Urobilinogen (<2.0) mg/dL Leukocyte Esterase Rfl (Negative) KEYLA/UL Urine RBC (0-2) /hpf Urine WBC (0-3) /hpf Ur Squamous Epith Cells (Few) /hpf Urine Bacteria /hpf Urine Casts POC Urine HCG, Qual (Negative) Monoscreen Negative (Negative) Blood Type <Aury Loyd, MORRIS-C - Last Filed: 05/02/25 15:43> Lab Results 05/02/25 05/02/25 05/02/25 Range/Units 16:17 16:53 17:02 WBC 41.9 H (4.5-10.0) K/mm3 RBC 4.66 (4.2-5.4) M/mm3 Hgb 12.9 (12.0-15.0) g/dL Hct 39.7 (37.0-47.0) % MCV 85.2 (80-100) fl MCH 27.7 (26-34) pg MCHC 32.5 (32-36) g/dl RDW 15.6 H (11.5-14.5) % Plt Count 215 (150-375) k/mm3 MPV 10.5 H (7.4-10.4) fl Immature Gran % (Auto) Not Reportable Neut % (Auto) Not Reportable Lymph % (Auto) Not Reportable [place] % (Auto) Not Reportable Eos % (Auto) Not Reportable Baso % (Auto) Not Reportable Lymph # (Auto) Not Reportable [place] # (Auto) Not Reportable Eos # (Auto) Not Reportable Baso # (Auto) Not Reportable Abs Immat Gran (auto) Not Reportable Absolute Neuts (auto) Not Reportable Absolute Nucleated RBC Not Reportable Total Counted 100 Neutrophils % (Manual) 58 (46-73) % Band Neutrophils % 11 H (0-6) % Lymphocytes % (Manual) 25.0 (18-44) % Monocytes % (Manual) 2 L (3-9) % Eosinophils % (Manual) 1 (0-4) % Metamyelocytes % 3 % Nucleated RBC % Not Reportable Abs Neuts (Manual) 28.91 H (1.3-6.7) K/mm3 Abs Lymphs (Manual) 10.47 H (1.1-4.5) K/mm3 Abs Monocytes (Manual) 0.83 (0.1-0.90) K/mm3 Absolute Eos (Manual) 0.41 (0.02-0.50) K/mm3 Platelet Estimate Adequate (Adequate) % Immature Plt Fraction 5.3 (0.9-11.2) % Hypochromasia 1+ Anisocytosis 2+ Schistocytes None seen ESR 13 (0-20) mm/hr PT 13.4 (11.1-14.7) Seconds INR 1.0 APTT 34.0 (22.3-36.8) Seconds Sodium 137 (137-145) mmol/L Potassium 4.1 (3.4-5.0) mmol/L Chloride 103 (98-107) mmol/L Carbon Dioxide 26 (22-30) mmol/L Anion Gap 8 (4-12) mmol/L BUN 12 (7-17) mg/dL Creatinine 0.85 (0.7-1.0) mg/dL Estim Creat Clear Calc 108 ml/min Estimated GFR > 60 (59 - ) Glucose 98 (65-110) mg/dL Lactic Acid (0.7-2.0) mmol/L Calcium 8.9 (8.4-10.2) mg/dL Total Bilirubin 0.6 (0.2-1.3) mg/dL AST 45 H (14-36) U/L ALT 49 H (6-35) U/L Alkaline Phosphatase 56 (38-126) U/L C-Reactive Protein Total Protein 8.3 H (6.3-8.2) g/dL Albumin 4.7 (3.5-5.1) g/dL Procalcitonin ng/mL TSH (Reflex) (0.465-4.68) uIU/mL Beta HCG, Quant mIU/ML Urine Color Yellow (Yellow) Urine Appearance Cloudy H (Clear) Urine pH 6.0 (5.0-9.0) Ur Specific Walker 1.021 (1.001-1.035) Urine Protein Negative (Negative) mg/dL Urine Glucose (UA) Negative (Negative) mg/dL Urine Ketones Negative (Negative) mg/dL Ur Blood (Man) 3+ H (Negative) Urine Nitrate Negative (Negative) Urine Bilirubin Negative (Negative) Urine Urobilinogen 1.0 (<2.0) mg/dL Leukocyte Esterase Rfl Negative (Negative) KEYLA/UL Urine RBC >100 H (0-2) /hpf Urine WBC 0-5 (0-3) /hpf Ur Squamous Epith Cells None seen (Few) /hpf Urine Bacteria None seen /hpf Urine Casts 0-2 POC Urine HCG, Qual Negative (Negative) Monoscreen (Negative) Blood Type A Positive 05/02/25 05/02/25 Range/Units 17:46 17:46 WBC 43.5 H (4.5-10.0) K/mm3 RBC 4.59 (4.2-5.4) M/mm3 Hgb 12.6 (12.0-15.0) g/dL Hct 39.1 (37.0-47.0) % MCV 85.2 (80-100) fl MCH 27.5 (26-34) pg MCHC 32.2 (32-36) g/dl RDW 15.8 H (11.5-14.5) % Plt Count 201 (150-375) k/mm3 MPV 10.4 (7.4-10.4) fl Immature Gran % (Auto) Not Reportable Neut % (Auto) Not Reportable Lymph % (Auto) Not Reportable [place] % (Auto) Not Reportable Eos % (Auto) Not Reportable Baso % (Auto) Not Reportable Lymph # (Auto) Not Reportable [place] # (Auto) Not Reportable Eos # (Auto) Not Reportable Baso # (Auto) Not Reportable Abs Immat Gran (auto) Not Reportable Absolute Neuts (auto) Not Reportable Absolute Nucleated RBC Not Reportable Total Counted 100 Neutrophils % (Manual) 56 (46-73) % Band Neutrophils % 11 H (0-6) % Lymphocytes % (Manual) 27.0 (18-44) % Monocytes % (Manual) 2 L (3-9) % Eosinophils % (Manual) 1 (0-4) % Metamyelocytes % 3 % Nucleated RBC % Not Reportable Abs Neuts (Manual) 29.14 H (1.3-6.7) K/mm3 Abs Lymphs (Manual) 11.74 H (1.1-4.5) K/mm3 Abs Monocytes (Manual) 0.87 (0.1-0.90) K/mm3 Absolute Eos (Manual) 0.43 (0.02-0.50) K/mm3 Platelet Estimate Adequate (Adequate) % Immature Plt Fraction (0.9-11.2) % Hypochromasia 1+ Anisocytosis 2+ Schistocytes None seen ESR (0-20) mm/hr PT 13.3 (11.1-14.7) Seconds INR 1.0 APTT 32.3 (22.3-36.8) Seconds Sodium (137-145) mmol/L Potassium (3.4-5.0) mmol/L Chloride (98-107) mmol/L Carbon Dioxide (22-30) mmol/L Anion Gap (4-12) mmol/L BUN (7-17) mg/dL Creatinine (0.7-1.0) mg/dL Estim Creat Clear Calc ml/min Estimated GFR (59 - ) Glucose (65-110) mg/dL Lactic Acid 1.0 (0.7-2.0) mmol/L Calcium (8.4-10.2) mg/dL Total Bilirubin (0.2-1.3) mg/dL AST (14-36) U/L ALT (6-35) U/L Alkaline Phosphatase (38-126) U/L C-Reactive Protein Cancelled < 0.5 Total Protein (6.3-8.2) g/dL Albumin (3.5-5.1) g/dL Procalcitonin 0.1 ng/mL TSH (Reflex) 2.300 (0.465-4.68) uIU/mL Beta HCG, Quant < 2.39 mIU/ML Urine Color (Yellow) Urine Appearance (Clear) Urine pH (5.0-9.0) Ur Specific [place] (1.001-1.035) Urine Protein (Negative) mg/dL Urine Glucose (UA) (Negative) mg/dL Urine Ketones (Negative) mg/dL Ur Blood (Man) (Negative) Urine Nitrate (Negative) Urine Bilirubin (Negative) Urine Urobilinogen (<2.0) mg/dL Leukocyte Esterase Rfl (Negative) KEYLA/UL Urine RBC (0-2) /hpf Urine WBC (0-3) /hpf Ur Squamous Epith Cells (Few) /hpf Urine Bacteria /hpf Urine Casts POC Urine HCG, Qual (Negative) Monoscreen Negative (Negative) Blood Type <Chika Diop APRN - Last Filed: 05/02/25 21:40> Imaging Data Attestation: I personally reviewed and interpreted this imaging study as follows: < Chika Diop APRN - Last Filed: 05/02/25 21:40> Radiologist's impression: Impressions Pelvic/Transvag US 05/02/25 19:22 IMPRESSION: 1. Status post right oophorectomy. Otherwise unremarkable pelvic ultrasound with no evident intrauterine gestational sac. Abdomen/Pelvis CT 05/02/25 20:19 IMPRESSION: 1. No acute intra-abdominal/pelvic process. <Chika Diop APRN - Last Filed: 05/02/25 21:40> Discharge Plan Discharge Clinical Impression: Abnormal vaginal bleeding, Dysmenorrhea, unspecified <NE Williamson - Last Filed: 05/02/25 15:43> Patient Disposition: Home <NE Williamson - Last Filed: 05/02/25 15:43> Condition: Stable <NE Williamson - Last Filed: 05/02/25 15:43> Instructions: Antibiotic Form, Abnormal (Dysfunctional) Uterine Bleeding (ED) <NE Williamson - Last Filed: 05/02/25 15:43> Additional Instructions: Please return to the ER with any worsening symptoms. Follow-up with primary care provider and OBGYN as soon as possible. Take all medications as prescribed, including regularly scheduled medications. You may take Tylenol as needed for pain control along with ibuprofen 800 mg every 8 hours. <NE Williamson - Last Filed: 05/02/25 15:43> Patient Language: Romanian <NE Williamson - Last Filed: 05/02/25 15:43> Prescriptions: New ibuprofen 800 mg tablet 800 mg PO TID PRN (Reason: pain) Qty: 30 0RF <NE Williamson - Last Filed: 05/02/25 15:43> Follow-up/Referrals: Jeramy Mcclain MD [Physician, DIRECTOR OF CONTENT AND PROGRAMMING] Referral Note: OBGYN PHYSICIAN NOT ON STAFF,NONSTAFF [Primary Care Provider] <NE Williamson - Last Filed: 05/02/25 15:43> Stand Alone Forms: Work/School Release IP <NE Williamson - Last Filed: 05/02/25 15:43> Time of Disposition: 21:40 <NE Williamson - Last Filed: 05/02/25 15:43> 21:40 <Chika Diop APRN - Last Filed: 05/02/25 21:40>
[2025-05-02 16:26] LABS: Hematocrit 39.7 % (37.0-47.0); Hemoglobin 12.9 g/dL (12.0-15.0); Immature Platelet Fraction Pct 5.3 % (0.9-11.2); Mean Corpuscular HGB Conc 32.5 g/dl (32-36); Mean Corpuscular Hemoglobin 27.7 pg (26-34); Mean Corpuscular Volume 85.2 fl (80-100); Platelet Count Result 215 k/mm3 (150-375); Red Blood Count 4.66 M/mm3 (4.2-5.4); White Blood Count 41.9 K/mm3 (4.5-10.0)
[2025-05-02 16:34] LABS: Alanine Aminotransferase 49 U/L (6-35); Albumin Level 4.7 g/dL (3.5-5.1); Alkaline Phosphatase 56 U/L (38-126); Anion Gap 8 mmol/L (4-12); Aspartate Amino Transferase 45 U/L (14-36); Bilirubin,Total 0.6 mg/dL (0.2-1.3); Blood Urea Nitrogen 12 mg/dL (7-17); Calcium 8.9 mg/dL (8.4-10.2); Carbon Dioxide 26 mmol/L (22-30); Chloride 103 mmol/L (98-107); Estimated CRCL calculation 108 ml/min; Estimated Glomerular Filt Rate > 60; Glucose 98 mg/dL (65-110); Potassium 4.1 mmol/L (3.4-5.0); Sodium 137 mmol/L (137-145); Total Protein 8.3 g/dL (6.3-8.2)
[2025-05-02 16:35] LABS: INR 1.0; Prothrombin Time 13.4 Seconds (11.1-14.7)
[2025-05-02 16:36] LABS: Partial Thromboplastin Time 34.0 Seconds (22.3-36.8)
--- OUTSIDE RECORDS SUMMARY | 2025-05-02 16:49 | XMS_ITS | Encounter Summary ---
Author Organization [facility] Address [address] [place] [address] Care Team Providers Care Geophysical Laboratory Director Name Role Phone Charla Arriaga MD Primary Care Provider [phone] Encounter Details Date Type Department Care Team (Late st Contact Info) Description 11/15/2024 Orders Only Family Medicine - [address], [place] [address] [facility] [address] [place] [address] Tana Mills CMA Social History Tobacco Use Types Packs/Day Years Used Date Smoking Tobacco: Never Passive Smoke Exposure: Never Smokeless Tobacco: Never Alcohol Use Standard Drinks/Week Comments Yes 1 (1 standard drink = 0.6 oz pur e alcohol) less than monthly AUDIT-C Answer Date Recorded Frequency of Alcohol Consumption Monthly or less 05/31/2019 Average Number of Drinks 1 or 2 019 Frequency of Binge Drinking Never 05/08 PHQ-2 Answer Date Recorded PHQ-2 SCORE 0 08/30/2024 Comments No Sex and Gender Information Value Date Recorded Sex Assigned at Not on file Legal Sex Female 10:15 AM JAVASCRIPT ENGINEER Gender Identity Not on file Sexual Orientation Not on file documented as of this encounter Functional Status * Hearing Problems? Answer Date of Assessment Author Yes 08/30/2024 5:00 PM Umm Beal CMA * Vision Problems? Answer Date of Assessment Author No 08/30/2024 5:00 PM Umm Beal CMA * Difficulty walking? Answer Date of Assessment Author No 08/30/2024 5:00 PM Umm Beal CMA * Difficulty dressing or bathing? Answer Date of Assessment Author No 08/30/2024 5:00 PM Umm Beal CMA * Problems with daily activities? Answer Date of Assessment Author No 08/30/2024 5:00 PM Umm Beal CMA documented as of this encounter Mental Status * Memory Problems? Answer Entry Date Author No 08/30/2024 5:00 PM Umm Beal CMA documented in this encounter Plan of Treatment Not on file documented as of this encounter Visit Diagnoses Not on filedocumented in this encounter Care Teams Geophysical Laboratory Director Relationship Specialty Start Date End Date Charla Arriaga MD [address] [facility] [address] [place] [address] PCP - General Family Practice 06/28/21 documented as of this encounter
--- OUTSIDE RECORDS SUMMARY | 2025-05-02 16:49 | XMS_ITS | Encounter Summary ---
Author Organization [facility] Address [address] [place] [address] Care Team Providers Care Etcher Enameling Name Role Phone Charla Arriaga MD Primary Care Provider [phone] Encounter Details Date Type Department Care Team (Late st Contact Info) Description 10/11/2019 Orders Only Family Medicine - [place] [facility] [address] [place] [address] Charla Arriaga MD [address] [place], [place] [id number] Immunity status testing Social History Tobacco Use Types Packs/Day Years Used Date Smoking Tobacco: Never Smokeless Tobacco: Never Alcohol Use Standard Drinks/Week Comments Yes 1 (1 standard drink = 0.6 oz pur e alcohol) less than monthly AUDIT-C Answer Date Recorded Frequency of Alcohol Consumption Monthly or less 05/31/2019 Average Number of Drinks 1 or 2 019 Frequency of Binge Drinking Never 05/08 Comments No Sex and Gender Information Value Date Recorded Sex Assigned at Not on file Legal Sex 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 No / Unsure 10/11/2019 1:35 PM CDT documented as of this encounter Functional Status * Hearing Problems? Answer Date of Assessment Author No 07/21/2017 9:20 AM FEDERAL DISTRICT CLERK Brit Mckeon * Vision Problems? Answer Date of Assessment Author No 07/21/2017 9:20 AM Brit Sarabia * Difficulty walking? Answer Date of Assessment Author No 07/21/2017 9:20 AM Brit Sarabia * Difficulty dressing or bathing? Answer Date of Assessment Author No 07/21/2017 9:20 AM Brit Sarabia * Problems with daily activities? Answer Date of Assessment Author No 07/21/2017 9:20 AM Brit Sarabia documented as of this encounter Mental Status * Memory Problems? Answer Entry Date Author No 07/21/2017 9:20 AM Brit Sarabia documented in this encounter Plan of Treatment [...] Qualitative Positive Positive 10/11/2019 5:43 PM CDT DM [facility] Rubella IgG Quantitative 46.0 IU/mL 10/11/2019 5:43 PM CDT [facility] Blood Venipuncture / Unknown 10/11/2019 1:14 PM CDT 10/11/2019 1:14 PM CDT us Charla Arriaga MD LAB BLOOD ORDERABLES Final Resu lt Performing Organization Address [facility] Co de Phone Number [facility] [address] [phone] * MUMPS ANTIBODIES, IGG-IMMUNITY (10/11/2019 1:14 PM CDT) Mumps IgG Qualitative Positive Positive 10/11/2019 5:11 PM CDT [facility] Mumps IgG Quantitative 3.8 AI 10/11/2019 5:11 PM CDT [facility] Comment: Not Immune/Negative: <=0.8 AI Repeat Testing/Equivocal: 0.9 - 1.0 AI Immune/Positive: >=1.1 AI AI=Antibody Index Blood Venipuncture / Unknown 10/11/2019 1:14 PM CDT 10/11/2019 1:14 PM CDT Charla Arriaga MD LAB BLOOD ORDERABLES Final Resu lt Performing Organization Address [facility] de Phone Number [facility] [address] [phone] * RUBEOLA(MEASLES)ANTIBODIES, IGG-IMMUNITY (10/11/2019 1:14 PM CDT) Measles (Rubeola) IgG Qualitative Positive Positive 10/11/2019 5:11 PM CDT [facility] Measles (Rubeola) IgG Quantitative 2.2 AI 10/11/2019 5:11 PM CDT [facility] Comment: Not Immune/Negative: <=0.8 AI Repeat Testing/Equivocal: 0.9 - 1.0 AI Immune/Positive: >=1.1 AI AI=Antibody Index Blood Venipuncture / Unknown 10/11/2019 1:14 PM CDT 10/11/2019 1:14 PM CDT Charla Arriaga MD LAB BLOOD ORDERABLES Final Resu lt Performing Organization Address [facility] de Phone Number [facility] [address] [phone] * VARICELLA IGG (COLLEGE TITER) (10/11/2019 1:14 PM CDT) Varicella zoster Virus IgG Qualitative Positive Positive 10/11/2019 5:11 PM CDT [facility] Varicella zoster Virus IgG Quantitative 5.0 AI 10/11/2019 5:11 PM CDT [facility] Comment: Not Immune/Negative: <=0.8 AI Repeat Testing/Equivocal: 0.9 - 1.0 AI Immune/Positive: >=1.1 AI AI=Antibody Index Blood Venipuncture / Unknown 10/11/2019 1:14 PM CDT 10/11/2019 1:14 PM CDT Charla Arriaga MD LAB BLOOD ORDERABLES Final Resu lt Performing Organization Address [facility] de Phone Number [facility] [address] [phone] * HEPATITIS B SURFACE ANTIBODY (10/11/2019 1:14 PM CDT) [facility] Heptatitis B Surface Ab Quant 281.7 >8.5 mIU/mL 10/12/2019 4:22 PM CDT [facility] Comment: Not Immune/Nonreactive: <=8.5 mIU/mL Repeat Testing/Indeterminate: 8.6-11.4 mIU/mL Immune/Reactive: >=11.5 mIU/mL Hepatitis B Surface Antibody Reactive Reactive 10/12/2019 4:22 PM CDT [facility] Blood Venipuncture / Unknown 10/11/2019 1:14 PM CDT 10/11/2019 1:14 PM CDT Charla Arriaga MD LAB BLOOD ORDERABLES Final Resu lt Performing Organization Address City/[facility] Co de Phone Number [facility] [address] [place] [address], [facility] [phone] documented in this encounter Visit Diagnoses Diagnosis Immunity status testing Antibody response examination documented in this encounter Care Teams Etcher Enameling Relationship Specialty Start Date End Date Charla Arriaga MD [address] [facility] [address] [place] [address] PCP - General Family Practice 06/28/21 documented as of this encounter
--- OUTSIDE RECORDS SUMMARY | 2025-05-02 16:49 | XMS_ITS | Encounter Summary ---
Author Organization [facility] Address [address] [place] [address] Care Team Providers Care Long Filler Cigar Roller Machine Name Role Phone Charla Arriaga MD Primary Care Provider [phone] Encounter Details Date Type Department Care Team (Late st Contact Info) Description 06/18/2016 Orders Only Family Medicine - [place] [address] [facility] [address] [place], [place] [id number] Mayra Montana MD Abnormal TSH Social History Tobacco Use Types Packs/Day Years Used Date Smoking Tobacco: Never Smokeless Tobacco: Never Alcohol Use Standard Drinks/Week Comments Yes 0 (1 standard drink = 0.6 oz pur e alcohol) socially Comments No Sex and Gender Information Value Date Recorded Sex Assigned at Not on file Legal Sex Female 10:15 AM ENROBING MACHINE OPERATOR Gender Identity Not on file Sexual Orientation Not on file documented as of this encounter Functional Status * Hearing Problems? Answer Date of Assessment Author No 06/06/2016 3:11 PM Little Rader * Vision Problems? Answer Date of Assessment Author No 06/06/2016 3:11 PM Little Rader * Difficulty walking? Answer Date of Assessment Author No 06/06/2016 3:11 PM Little Rader * Difficulty dressing or bathing? Answer Date of Assessment Author No 06/06/2016 3:11 PM Little Rader * Problems with daily activities? Answer Date of Assessment Author No 06/06/2016 3:11 PM Little Rader documented as of this encounter Mental Status * Memory Problems? Answer Entry Date Author No 06/06/2016 3:11 PM Little Rader documented in this encounter Plan of Treatment Not on file documented as of this encounter Procedures Procedure Name Priority Date/Time Associated Diagnosis Comments THYROID ANTIBODIES Routine 06/18/2016 2: 43 PM ENROBING MACHINE OPERATOR Abnormal TSH TRIIODOTHYRONINE (T3), FREE Routine 06/18/2016 2:43 PM ENROBING MACHINE OPERATOR Abnormal TSH TSH+FREE T4 Routine 06/18/2016 2:43 PM ENROBING MACHINE OPERATOR Abnormal TSH documented in this encounter Results * THYROID ANTIBODIES (06/18/2016 2:43 PM ENROBING MACHINE OPERATOR) Anti-Thyroglobu chari 21 <60 U/mL 06/19/2016 12:31 AM ENROBING MACHINE OPERATOR [facility] Anti-Thyroperox idase <28 <60 U/mL 06/19/2016 12:31 AM ENROBING MACHINE OPERATOR [facility] Blood Venipuncture / Unknown 06/18/2016 2:43 PM ENROBING MACHINE OPERATOR 06/18/2016 2:43 PM ENROBING MACHINE OPERATOR us Mayra Montana MD LABORATORY Final Result [facility] [address] [place] [address] * FREE T3 (TRIIODOTHYRONINE) (06/18/2016 2:43 PM ENROBING MACHINE OPERATOR) Free T3 3.10 2.18 - 3.98 pg/mL 06/18/2016 5:09 PM ENROBING MACHINE OPERATOR [facility] Blood Venipuncture / Unknown 06/18/2016 2:43 PM ENROBING MACHINE OPERATOR 06/18/2016 2:43 PM ENROBING MACHINE OPERATOR us Mayra Montana MD LAB BLOOD ORDERABLES Final Resul t [facility] [address] [phone] * TSH+FREE T4 (06/18/2016 2:43 PM ENROBING MACHINE OPERATOR) TSH 2.021 0.358 - 3.74 uIU/mL 06/18/2016 5:09 PM ENROBING MACHINE OPERATOR [facility] Free T4 1.22 0.76 - 1.46 ng/dL 06/18/2016 5:09 PM ENROBING MACHINE OPERATOR [facility] Blood Venipuncture / Unknown 06/18/2016 2:43 PM ENROBING MACHINE OPERATOR 06/18/2016 2:43 PM ENROBING MACHINE OPERATOR us Mayra Montana MD LAB BLOOD ORDERABLES Final Resul t [facility] [address] [facility] [place] [phone] documented in this encounter Visit Diagnoses Diagnosis Abnormal TSH Other abnormal clinical finding documented in this encounter Care Teams Long Filler Cigar Roller Machine Relationship Specialty Start Date End Date Charla Arriaga MD [address] [facility] [address] [place] [address] PCP - General Family Practice 06/28/21 documented as of this encounter
--- OUTSIDE RECORDS SUMMARY | 2025-05-02 16:49 | XMS_ITS | Clinical Summary ---
Author Organization [facility] Address [address] [place] [address] Care Team Providers Care Construction Ironworker Helper Name Role Phone Charla Arriaga MD Primary Care Provider [phone] Allergies Active Allergy Reactions Criticality Noted Date Comments Alcohol HIVES High 08/11/2023 Palpitations and hives wine is okay Medications fluocinonide 0.05 % External Cream Apply 1 Application. topically 2 (two) times daily as needed. Avoid use on face. Avoid using on same location for >2wks 30 g 5 Active Active Problems Problem Noted Date Diagnosed [...] VAC QIV SPLIT 3 YRS AND OLDER (34198) 07/02/2021 Flucelvax 0.5 ml Quad MDV 6m+ (19606) 10/11/2019 HEP B Vaccine 01/04/2014 Hpv Virus [...] on file Legal Sex Female 10:15 AM CUSTOMER EXPERIENCE CONSULTANT Gender Identity Not on file Sexual Orientation Not on file Last Filed Vital Signs Vital Sign Reading Time Taken Comments Blood Pressure 134/83 08/30/2024 3:27 PM CUSTOMER EXPERIENCE CONSULTANT Pulse 87 08/30/2024 3:27 PM CUSTOMER EXPERIENCE CONSULTANT Temperature 36.7 C (98 F) 08/30/2024 3:27 PM CUSTOMER EXPERIENCE CONSULTANT Respiratory Rate 16 08/30/2024 3:27 PM CUSTOMER EXPERIENCE CONSULTANT Oxygen Saturation 100% 07/02/2021 9:50 AM CUSTOMER EXPERIENCE CONSULTANT Inhaled Oxygen Concentration - - Weight 107.9 kg (237 lb 12.8 oz) 08/30/2024 3:27 PM CUSTOMER EXPERIENCE CONSULTANT Height 170.2 cm (5' 7) 08/30/2024 3:27 PM CUSTOMER EXPERIENCE CONSULTANT Body Mass Index 37.24 08/30/2024 3:27 PM CUSTOMER EXPERIENCE CONSULTANT Plan of Treatment Health Maintenance Due Date Last Done Comments Pap Smear,1 Year 06/14/2020 06/14/2019, , 04/24/2017 COVID-19 Vaccine ( season) 2025 06/03/2021, 09/29/2020, 09/08/2020 Influenza Vaccine (#1) 2025 , 04/06/2020, 10/11/2019, Additional history exists Annual Depression Screen 08/30/2025 08/30/2024, 04/0 03/2019 Annual Physical 08/30/2025 08/30/2024, 05/08, 06/06/2016 RSV Vaccines: ; 60+ Years (1 - 1-dose 75+ series) 2071 Pneumococcal Vaccine: to 49yrs Aged Out No longer eligible based on patient's age to complete this topic Procedures Procedure Name Priority Date/Time Associated Diagnosis Comments PERIODIC PREVENTIVE MED EST PATIENT 18-39 YRS Routine 08/30/2024 4:29 PM CUSTOMER EXPERIENCE CONSULTANT Routine general medical examination at a health care facility PAP WITH REFLEX TO HPV WHEN ASC-U, THINPREP Routine 06/14/2019 3:37 PM CUSTOMER EXPERIENCE CONSULTANT Screening for cervical cancer from Last 3 Months or Most Recently Relevant to Health Maintenance Results * THINPREP PAP- RFX TO HPV IF ASCU (06/14/2019 3:37 PM CUSTOMER EXPERIENCE CONSULTANT) DIAGNOSIS: Comment 06/16/2019 4:07 PM CUSTOMER EXPERIENCE CONSULTANT [facility] Comment:NEGATIVE FOR INTRAEP ITHELIAL LESION OR MALIGNANCY. Specimen adequacy: Comment 2018 4:07 PM CUSTOMER EXPERIENCE CONSULTANT [facility] Comment: Satisfactory for evaluation. Endocervical and/or squamous metaplastic cells (endocervical component) are present. Clinician provided ICD10: Comment 06/16/2019 4:07 PM CUSTOMER EXPERIENCE CONSULTANT [facility] Comment:Z12.4 Performed by: Comment 06/16/2019 4:07 PM CUSTOMER EXPERIENCE CONSULTANT [facility] Comment:Thompson Mccloud totechnologist (ASCP) . . 06/16/2019 4:07 PM CUSTOMER EXPERIENCE CONSULTANT [facility] Note: Comment 06/16/2019 4:07 PM CUSTOMER EXPERIENCE CONSULTANT [facility] Comment: The Pap smear is a screening test designed to aid in the detection of premalignant and malignant conditions of the uterine cervix. It is not a diagnostic procedure and should not be used as the sole means of detecting cervical cancer. Both false-positive and false-negative reports do occur. Test Methodology: Comment 019 4:07 PM CUSTOMER EXPERIENCE CONSULTANT [facility] Comment: This liquid based ThinPrep(R) pap test was screened with the use of an image guided system. . Comment 06/16/2019 4:07 PM CUSTOMER EXPERIENCE CONSULTANT [facility] Comment: The HPV DNA reflex criteria were not met with this specimen result therefore, no HPV testing was performed. Other CERVICAL SWAB / Unknown 06/14/2019 3:37 PM CUSTOMER EXPERIENCE CONSULTANT 06/14/2019 3:37 PM CUSTOMER EXPERIENCE CONSULTANT Narrative [facility] - 06/16/2019 4:07 PM CUSTOMER EXPERIENCE CONSULTANT Performed at: 01 - [facility] [id number] Reading Tutor: Taylor Blanco MD, Phone: [phone] Specimen Comment: No. of containers..01 ThinPrep Vial Charla Arriaga MD PATHOLOGY/CYTOLOGY ORDERABLES F inal Result [facility]) from Last 3 Months or Most Recently Relevant to Health Maintenance Insurance [facility] [place] [id number] Care Teams Construction Ironworker Helper Relationship Specialty Start Date End Date Charla Arriaga MD [address] [facility] [address] [place] [address] PCP - General Family Practice 06/28/21
--- OUTSIDE RECORDS SUMMARY | 2025-05-02 16:49 | XMS_ITS | Encounter Summary ---
Author Organization [facility] Address [address] [place] [address] Care Team Providers Care Barber Tool Sharpener Name Role Phone Charla Arriaga MD Primary Care Provider [phone] Encounter Details Date Type Department Care Team (Late st Contact Info) Description 05/01/2017 [facility] [address] [place] [address] Ambrosio Gaspar MD LTBI (latent tuberculosis infection) Social History Tobacco Use Types Packs/Day Years Used Date Smoking Tobacco: Never Smokeless Tobacco: Never Alcohol Use Standard Drinks/Week Comments Yes 1 (1 standard drink = 0.6 oz pur e alcohol) socially Comments No Sex and Gender Information Value Date Recorded Sex Assigned at Not on file Legal Sex Female 10:15 AM THERAPIST ASST Gender Identity Not on file Sexual Orientation Not on file documented as of this encounter Functional Status * Hearing Problems? Answer Date of Assessment Author Yes 12/12/2016 8:39 AM Little Ghotra * Vision Problems? Answer Date of Assessment Author No 12/12/2016 8:39 AM Little Ghotra * Difficulty walking? Answer Date of Assessment Author No 12/12/2016 8:39 AM Little Ghotra * Difficulty dressing or bathing? Answer Date of Assessment Author No 12/12/2016 8:39 AM Little Ghotra * Problems with daily activities? Answer Date of Assessment Author No 12/12/2016 8:39 AM Little Ghotra documented as of this encounter Mental Status * Memory Problems? Answer Entry Date Author No 12/12/2016 8:39 AM CDT Little Cardona documented in this encounter Plan of Treatment [...] 05/01/2017 1:36 PM CDT [facility] [place] 1.021 1.001 - 1.030 05/01/2017 1:36 PM [...] AM CDT Ambrosio Gaspar MD URINE ORDERABLES Final Result [facility] [address] [place] [address] documented in this encounter Visit Diagnoses Diagnosis LTBI (latent tuberculosis infection) Nonspecific reaction to tuberculin skin test without active tuberculosis documented in this encounter Care Teams Barber Tool Sharpener Relationship Specialty Start Date End Date Charla Arriaga MD [address] [facility] [address] [place] [address] PCP - General Family Practice 06/28/21 documented as of this encounter
--- OUTSIDE RECORDS SUMMARY | 2025-05-02 16:49 | XMS_ITS | Encounter Summary ---
Author Organization [facility] Address [address] [place] [address] Care Team Providers Care Repairer Evaporator Name Role Phone Charla Arriaga MD Primary Care Provider Encounter Details Date Type Department Care Team (Late st Contact Info) Description 06/07/2016 Orders Only Family Medicine - [facility] [address] [facility] [address] [place], [place] [id number] Mayra Montana MD Encounter for screening for [...] on file Legal Sex Female 10:15 AM PLATE PUT IN WORKER Gender Identity Not on file Sexual Orientation [...] of Assessment Author No 06/06/2016 3:11 PM PLATE PUT IN WORKER Little Cardona. documented as of this encounter Mental Status * Memory Problems? Answer Entry Date Author No 06/06/2016 3:11 PM PLATE PUT IN WORKER Little Cardona. documented in this encounter Progress Notes * Oly Lala RN - 06/14/2016 6:27 AM CSTQuick Note: This has been taken care of through pt eamil already on . E PUT IN WORKER * Mayra Montana - 06/11/2016 10:28 AM CSTQuick Note: Ordering additional thyroid function test to evaluate abnormal TSH. Please contact pt to go for additional labs, then follow up in office. E PUT IN WORKER documented in this encounter Plan of Treatment Not on file documented as of this encounter Procedures Procedure Name Priority Date/Time Associated Diagnosis Comments COMPLETE BLOOD COUNT (CBC) WITH DIFFERENTIAL Routine 06/07/2016 8:17 AM PLATE PUT IN WORKER Screening for disorder of blood and blood-forming organs RAPID HIV Routine 06/07/2016 8:17 AM PLATE PUT IN WORKER Screening for HIV (human immunodeficiency virus) COMPREHENSIVE METABOLIC PANEL Routine 06/07/2016 8:17 AM PLATE PUT IN WORKER Screening for endocrine/metabolic/imm unity disorders LIPID PANEL Routine 06/07/2016 8:17 AM PLATE PUT IN WORKER Encounter for screening for lipid disorder THYROID- STIMULATION HORMONE (TSH) Routine 06/07/2016 8:17 AM PLATE PUT IN WORKER Thyroid disorder screen CBC WITH DIFFERENTIAL WITH PLATELET Routine 06/07/2016 8:17 AM PLATE PUT IN WORKER Screening for disorder of blood and blood-forming organs documented in this encounter Results * (ABNORMAL) CBC W/ DIFFERENTIAL (06/07/2016 8:17 AM PLATE PUT IN WORKER) WBC 6.56 4.10 - 11.30 10*3/uL 06/07/2016 8:31 AM PLATE PUT IN WORKER [facility] RBC 5.32(H) 3.81 - 5.20 10*6/uL 06/07/2016 8:31 AM PLATE PUT IN WORKER [facility] Hemoglobin 14.2 11.6 - 16.0 g/dL 06/07/2016 8:31 AM PLATE PUT IN WORKER [facility] Hematocrit 43.7 34.0 - 48.0 % 06/07/2016 8:31 AM PLATE PUT IN WORKER [facility] MCV 82.1 79.0 - 99.0 fL 06/07/2016 8:31 AM PLATE PUT IN WORKER [facility] MCH 26.7 26.0 - 32.5 pg 06/07/2016 8:31 AM PLATE PUT IN WORKER [facility] MCHC 32.5 31.8 - 36.0 g/dL 06/07/2016 8:31 AM PLATE PUT IN WORKER [facility] Platelet Count 236 145 - 450 10*3/uL 06/07/2016 8:31 AM PLATE PUT IN WORKER [facility] RDW 13.1 11.2 - 14.4 % 06/07/2016 8:31 AM PLATE PUT IN WORKER [facility] MPV 9.8 7.0 - 11.5 fL 06/07/2016 8:31 AM PLATE PUT IN WORKER [facility] Neutrophils Absolute 3.69 1.70 - 8.50 10 3/ L 06/07/2016 8:31 AM PLATE PUT IN WORKER [facility] Lymphocytes Absolute 2.16 0.80 - 4.50 10*3/uL 06/07/2016 8:31 AM PLATE PUT IN WORKER [facility] Monocytes Absolute 0.46 0.20 - 0.70 10*3/uL 06/07/2016 8:31 AM PLATE PUT IN WORKER [facility] Eosinophils Absolute 0.22 0.00 - 0.40 10*3/uL 06/07/2016 8:31 AM PLATE PUT IN WORKER [facility] Basophils Absolute 0.03 0.00 - 0.20 10*3/uL 06/07/2016 8:31 AM PLATE PUT IN WORKER [facility] nRBC Absolute 0.000 0.000 - 0.012 10*3/uL 06/07/2016 8:31 AM PLATE PUT IN WORKER [facility] Neutrophils % 56.2 % 06/07/2016 8:31 AM PLATE PUT IN WORKER [facility] Lymphocytes % 32.9 % 06/07/2016 8:31 AM PLATE PUT IN WORKER [facility] Monocytes % 7.0 % 06/07/2016 8:31 AM PLATE PUT IN WORKER [facility] Eosinophils % 3.4 % 06/07/2016 8:31 AM PLATE PUT IN WORKER [facility] Basophils % 0.5 % 06/07/2016 8:31 AM PLATE PUT IN WORKER [facility] nRBC/100 WBC 0.00 /100WBC 06/07/2016 8:31 AM PLATE PUT IN WORKER [facility] Blood Venipuncture / Unknown 06/07/2016 8:17 AM PLATE PUT IN WORKER 06/07/2016 8:17 AM PLATE PUT IN WORKER us Mayra Montana MD LAB BLOOD ORDERABLES Final Resul t [facility] [address] [place], [place] [address] [phone] * HIV-1/HIV-2 SINGLE ASSAY (06/07/2016 8:17 AM PLATE PUT IN WORKER) Pathologist [facility] Rapid HIV Nonreactive Nonreactive 06/07/2016 1:15 PM PLATE PUT IN WORKER [facility] Blood Venipuncture / Unknown 06/07/2016 8:17 AM PLATE PUT IN WORKER 06/07/2016 8:17 AM PLATE PUT IN WORKER us Mayra Montana MD LAB BLOOD ORDERABLES Final Resul t Performing Organization Address [facility] Co de Phone Number [facility] [address] [place] [address] * (ABNORMAL) ASSAY, THYROID STIM HORMONE (06/07/2016 8:17 AM PLATE PUT IN WORKER) Pathologist [facility] TSH 3.836(H) 0.358 - 3.74 uIU/mL 06/07/2016 11:36 AM PLATE PUT IN WORKER [facility] Blood Venipuncture / Unknown 06/07/2016 8:17 AM PLATE PUT IN WORKER 06/07/2016 8:17 AM PLATE PUT IN WORKER us Mayra Montana MD LAB BLOOD ORDERABLES Final Resul t Performing Organization Address City/[facility]/ZIP Co de Phone Number [facility] [address] [place], [place] [address] [phone] * (ABNORMAL) COMP METABOLIC PANEL (14) (06/07/2016 8:17 AM PLATE PUT IN WORKER) Glucose 103(H) 65 - 99 mg/dL 06/07/2016 10:06 AM PLATE PUT IN WORKER [facility] Blood Urea Nitrogen 10 7 - 18 mg/dL 06/07/2016 10:06 AM PLATE PUT IN WORKER [facility] Creatinine 0.79 0.55 - 1.30 mg/dL 06/07/2016 10:06 AM PLATE PUT IN WORKER [facility] Comment:Traceable to IDMS Sodium 140 135 - 145 mmol/L 06/07/2016 10:06 AM PLATE PUT IN WORKER [facility] Potassium 4.3 3.5 - 5.1 mmol/L 06/07/2016 10:06 AM PLATE PUT IN WORKER [facility] Chloride 104 98 - 107 mmol/L 06/07/2016 10:06 AM PLATE PUT IN WORKER [facility] Carbon Dioxide 28 21 - 32 mmol/L 06/07/2016 10:06 AM PLATE PUT IN WORKER [facility] Corrected Calcium 9.3 8.5 - 10.1 mg/dL 06/07/2016 10:06 AM PLATE PUT IN WORKER [facility] Comment:Corrected Calcium Fo rmula: ((4.0 - Albumin) x 0.8) + Calcium) Note: Calculation is only valid when Albumin is less than 4.0 g/dL Total Protein 7.4 6.4 - 8.2 g/dL 06/07/2016 10:06 AM PLATE PUT IN WORKER [facility] Albumin 3.8 3.4 - 5.0 g/dL 06/07/2016 10:06 AM PLATE PUT IN WORKER [facility] Bilirubin, Total 0.33 0.20 - 1.00 mg/dL 06/07/2016 10:06 AM PLATE PUT IN WORKER [facility] Alkaline Phosphatase 81 46 - 116 U/L 06/07/2016 10:06 AM PLATE PUT IN WORKER [facility] AST 25 15 - 37 U/L 06/07/2016 10:06 AM PLATE PUT IN WORKER [facility] ALT 54 12 - 60 U/L 06/07/2016 10:06 AM PLATE PUT IN WORKER [facility] GFR CKD-EPI 108.10 >=60.00 mL/min/1.7 3 m 06/07/2016 10:06 AM PLATE PUT IN WORKER [facility] Comment: Estimated GFR units: mL/min/1.73 square meters eGFR calculated by the CKD-EPI equation. Blood Venipuncture / Unknown 06/07/2016 8:17 AM PLATE PUT IN WORKER 06/07/2016 8:17 AM PLATE PUT IN WORKER us Mayra Montana MD LAB BLOOD ORDERABLES Final Resul t [facility] [address] [phone] * (ABNORMAL) LIPID PANEL (06/07/2016 8:17 AM PLATE PUT IN WORKER) Triglycerides 242(H) 30 - 150 mg/dL 06/07/2016 10:16 AM PLATE PUT IN WORKER [facility] Direct HDL 39(L) 40 - 60 mg/dL 06/07/2016 10:16 AM PLATE PUT IN WORKER [facility] Comment:Guidelines for high density lipoprotein (HDL) are adapted from the National Cholesterol Education Program (NCEP).Values >60 mg/dL are considered a negative risk factor for coronary heart disease (CHD) and are considered protective. Risk Factor 4.5 <5.0 06/07/2016 10:16 AM PLATE PUT IN WORKER [facility] Cholesterol 177 0 - 200 mg/dL 06/07/2016 10:16 AM PLATE PUT IN WORKER [facility] Calculated LDL 89.6 0 - 100 mg/dL 06/07/2016 10:16 AM PLATE PUT IN WORKER [facility] Blood Venipuncture / Unknown 06/07/2016 8:17 AM PLATE PUT IN WORKER 06/07/2016 8:17 AM PLATE PUT IN WORKER Mayra Montana MD LAB BLOOD ORDERABLES Final Resul t Performing Organization Address City/State/[facility] Co de Phone Number [facility] [address] [phone] documented in this encounter Visit Diagnoses Diagnosis [...] diseases documented in this encounter Care Teams Repairer Evaporator Relationship Specialty Start Date End Date Charla Arriaga MD [address] [facility] [address] [place] [address] PCP - General Family Practice 06/28/21 documented as of this encounter
--- OUTSIDE RECORDS SUMMARY | 2025-05-02 16:49 | XMS_ITS | Encounter Summary ---
Author Organization [facility] Address [address] [place] [address] Care Team Providers Care Side Stitcher Name Role Phone Charla Arriaga MD Primary Care Provider Encounter Details Date Type Department Care Team (Late st Contact Info) Description 05/06/2017 Orders Only Family Medicine - [facility] [address] [facility] [address] [place], [place] [address] Mayra Montana MD Chlamydial infection Social History Tobacco Use Types Packs/Day Years Used Date Smoking Tobacco: Never Smokeless Tobacco: Never Alcohol Use Standard Drinks/Week Comments Yes 1 (1 standard drink = 0.6 oz pur e alcohol) socially Comments No Sex and Gender Information Value Date Recorded Sex Assigned at Not on file Legal Sex Female 10:15 AM SYSTEMS DEVELOPMENT CONSULTANT Gender Identity Not on file Sexual [...] CDT Little Cardona documented in this encounter Progress Notes * Yamilka West RN - 05/11/2017 6:55 PM CST [facility] message sent. Current MyChart use confirmed by report in Epic. EMS DEVELOPMENT CONSULTANT * Mayra Montana - 05/08/2017 1:04 PM [...] RNA Negative Negative 05/07/2017 2:32 PM CDT [facility] Neisseria Gonorrhoeae Amplified RNA Negative Negative 05/07/2017 2:32 PM CDT [facility] Chlam/GC Source Urine 7 2:32 PM CDT [facility] Other URINE SPECIMEN / Unknown 05/06/2017 1:54 PM CDT 05/06/2017 1:54 PM CDT Narrative [facility] - 05/07/2017 2:32 PM CDT This test is a modified FDA-approved assay and its performance characteristics determined by [facility]. Results should be interpreted in conjunction with patient's clinical findings. This laboratory is certified under the Clinical Laboratory Improvement Amendments of 1988 (CLIA-88) as qualified to perform high complexity clinical laboratory testing. us Mayra Montana MD MICROBIOLOGY ORDERABLES Final Re sult [facility] [address] [place] [address] documented in this encounter Visit Diagnoses Diagnosis Chlamydial infection Unspecified chlamydial infection, in conditions classified elsewhere and of unspecified site documented in this encounter Care Teams Side Stitcher Relationship Specialty Start Date End Date Charla Arriaga MD [address] [place] [address] PCP - General Family Practice 06/28/21 documented as of this encounter
--- OUTSIDE RECORDS SUMMARY | 2025-05-02 16:49 | XMS_ITS | Patient Health Record ---
Author Organization [facility] Address [address] [place] [id number] Care Team Providers Care Three Dimensional Art Instructor Name Role Phone FELICE LIND Primary Care Provider Reason For Referral No Information Medications Medication SIG (Take, Route, Frequency, Duration) Notes Start Date End Date Status Tamiflu 75 MG 1 capsule Orally Twi ce a day; Duration: 5 day(s) 07/23/2017 Active Flonase Allergy Relief 50 MCG/ACT 1 spray in each nostril Nasally Once a day; Duration: 30 day(s) 07/23/2017 Active Tylenol 325 MG 2 tablets as needed Orally every 6 hrs 07/23/2017 Active Social History Tobacco Use: Social History Observation Description Date Details (start date - stop date) Never Smoker NA - NA Smoking Question Answer Notes Are you a: never smoker Problems Problem Type SNOMED Code ICD Code Onset Dates Problem Status W/U Status Risk Notes Problem Fever (678255346) Fever, unspecified (R50.9) Active confirmed Problem Acute maxillary sinusitis (72107437) Acute recurrent maxillary sinusitis (J01.01) Active confirmed Problem Upper respiratory tract infection caused by Influenza (99358242309700 102) Influenza due to unidentified influenza virus with other respiratory manifestations (J11.1) Active confirmed Plan Of Treatment No Information Insurance Providers Payer Name Payer Address Payer Phone Subscriber Number Group Number Insured Name Patient Relationship to Insured Coverage Start Date Coverage End Date [facility] [address] [address] [place] [phone] [id number] MICHELLE JAMES Aime Child - Insured has Financial Responsibility
--- OUTSIDE RECORDS SUMMARY | 2025-05-02 16:49 | XMS_ITS | Encounter Summary ---
Author Organization [facility] Address [address] [place] [address] Care Team Providers Care Phonograph Cartridge Assembler Name Role Phone Charla Arriaga MD Primary Care Provider [phone] Encounter Details Date Type Department Care Team (Late st Contact Info) Description 04/24/2017 Orders Only Family Medicine - [facility] [address] [facility] [address] [place], [place] [address] Mayra Montana MD Screening for HIV (human [...] on file Legal Sex Female 10:15 AM GENERAL MERCHANDISE MANAGER Gender Identity Not on file Sexual Orientation [...] documented in this encounter Progress Notes * Mayra Montana [...] Antibodies Nonreactive Nonreactive 04/24/2017 6:03 PM CDT [facility] Blood Venipuncture / Unknown 04/24/2017 10:02 AM CDT 04/24/2017 10:02 AM CDT us Mayra Montana MD LAB BLOOD ORDERABLES Final Resul t Performing Organization Address City/State/[facility] Co de Phone Number [facility] [address] [place] [address] * HIV AG AB COMBO (04/24/2017 10:02 AM CDT) HIV Antigen Antibody Combo Non-Reacti ve Non-Reacti ve 04/24/2017 6:31 PM CDT [facility] Blood Venipuncture / Unknown 04/24/2017 10:02 AM CDT 04/24/2017 10:02 AM CDT us Mayra Montana MD LAB BLOOD ORDERABLES Final Resul t [facility] [address] [place], [place] [phone] documented in this encounter Visit Diagnoses Diagnosis Screening for HIV (human immunodeficiency virus) Special screening examination for other specified viral diseases At risk for sexually transmitted disease due to unprotected sex documented in this encounter Care Teams Phonograph Cartridge Assembler Relationship Specialty Start Date End Date Charla Arriaga MD [address] [facility] [address] [place], [place] [id number] PCP - General Family Practice 06/28/21 documented as of this encounter
--- OUTSIDE RECORDS SUMMARY | 2025-05-02 16:49 | XMS_ITS | Encounter Summary ---
Author Organization [facility] Address [address] [place] [address] Care Team Providers Care Hydroponics Grower Name Role Phone Charla Arriaga MD Primary Care Provider [phone] Reason for Visit * Reason Onset Date Comments Refill Request 11/17/2024 Encounter Details Date Type Department Care Team (Late st Contact Info) Description 11/17/2024 Refill Family Medicine - [facility] [address] [place] [address] Charla Arriaga MD [address] [place] [address] Refill Request Social History Tobacco Use Types Packs/Day Years [...] on file Legal Sex Female 10:15 AM MATERIAL PROCESSOR Gender Identity Not on file Sexual Orientation Not on file documented as of this encounter Functional Status * Hearing Problems? Answer Date of Assessment Author Yes 08/30/2024 5:00 PM MATERIAL PROCESSOR Umm Franklin CMA * Vision Problems? Answer Date of [...] Umm Beal CMA documented in this encounter Progress Notes * Violeta Le RN - 11/17/2024 2:30 PM CDT Patient is requesting for medication refill of Fluocinonide. Verified RX benefits. Routing to Provider for review. Medication(s) to Refill: Requested Prescriptions Pending Prescriptions Disp Refills fluocinonide 0.05 % External Cream 0 Reason Refill Request is sent to Provider: Other: Medication not discussed. HIstorical Action taken: Non-Med Adherence Action: Routing to provider for review. Communication sent to patient/pharmacy via letter or Placecas[facility]art Last Time Medication was Filled: 11/15/24- external Last Office Visit with PCP: 08/30/24- Medication not discussed When Patient was Due Back to the Office: The patient is asked to return in 3 months for metabolic syndrome. (from when PCP last addressed condition) Future Appointments: Future Appointments Date Time Provider Department Center 12/06/2024 1:00 PM Charla Arriaga MD [facility] Last Blood Pressures: BP Readings from Last 1 Encounters: 08/30/24 : 134/83 documented in this encounter Plan of Treatment Not on file documented as of this encounter Visit Diagnoses Not on filedocumented in this encounter Care Teams Hydroponics Grower Relationship Specialty Start Date End Date Charla Arriaga MD [address] [facility] [address] [place] [address] PCP - General Family Practice 06/28/21 documented as of this encounter
--- OUTSIDE RECORDS SUMMARY | 2025-05-02 16:49 | XMS_ITS | Encounter Summary ---
Author Organization [facility] Address [address] [place] [address] Care Team Providers Care Hydraulic Lift Driver Name Role Phone Charla Arriaga MD Primary Care Provider [phone] Encounter Details Date Type Department Care Team (Late st Contact Info) Description 04/29/2017 Orders Only [facility] [place] [address] [place] [address] Ambrosio Gaspar MD LTBI (latent tuberculosis infection) Social History Tobacco Use Types Packs/Day Years Used Date Smoking Tobacco: Never Smokeless Tobacco: Never Alcohol Use Standard Drinks/Week Comments Yes 1 (1 standard drink = 0.6 oz pur e alcohol) socially Comments No Sex and Gender Information Value Date Recorded Sex Assigned at Not on file Legal Sex Female 10:15 AM CORNER CUTTER MACHINE OPERATOR Gender Identity Not on file [...] 7:18 AM CDT 04/29/2017 7:18 AM CDT us Ambrosio Gaspar MD LAB BLOOD ORDERABLES Final Res ult [facility] [address] [phone] * (ABNORMAL) COMP METABOLIC PANEL (14) (04/29/2017 [...] 7:18 AM CDT 04/29/2017 7:18 AM CDT us Ambrosio Gaspar MD LAB BLOOD ORDERABLES Final Res ult [facility] [address] [phone] documented in this encounter Visit Diagnoses Diagnosis LTBI (latent tuberculosis infection) Nonspecific reaction to tuberculin skin test without active tuberculosis documented in this encounter Care Teams Hydraulic Lift Driver Relationship Specialty Start Date End Date Charla Arriaga MD [address] [facility] [address] [place] [address] PCP - General Family Practice 06/28/21 documented as of this encounter
--- OUTSIDE RECORDS SUMMARY | 2025-05-02 16:50 | XMS_ITS | Clinical Summary ---
Author Organization [address] Address [address] [place] [phone] Care Team Providers Care Pocket Flap Creasing Machine Operator Name Role Phone Unknown, Notinfile Primary Care Provider Unavail able Allergies Active Allergy Reactions Criticality Noted Date Comments Alcohol Hives High 08/11/2023 Palpitations and hives wine is okay Palpitations and hives wine is okay Medications No known medications Active Problems No known active problems Encounters Date Type Department Care Team Description 04/02/2025 12:30 PM CDT Telemedicine [facility] Virtual Care [address] [place] [phone] Ana Hercules NP Acute diarrhea (Primary Dx) 04/02/2025 Patient Self-Triage [facility] [address] [place] [address] Mychart, Generic Provider from Last 3 Months Social History Tobacco Use Types Packs/Day Years Used Date Smoking Tobacco: Never Assessed Comments Unknown Sex and Gender Information Value Date Recorded Sex Assigned at Not on file Legal Sex Female 11:14 AM COUPON COLLECTION CLERK Gender Identity Female 04/02/2025 11:21 AM CDT Sexual Orientation Straight 04/02/2025 11 :21 AM CDT Obstetrics History Last Filed Vital Signs Vital Sign Reading Time Taken Comments Blood Pressure 126/73 09/05/2024 11:23 AM COUPON COLLECTION CLERK Pulse 73 09/05/2024 11:23 AM COUPON COLLECTION CLERK Temperature 36.8 C (98.3 F) 09/05/2024 11:23 AM COUPON COLLECTION CLERK Respiratory Rate 20 09/05/2024 11:23 AM COUPON COLLECTION CLERK Oxygen Saturation 99% 09/05/2024 11:23 AM COUPON COLLECTION CLERK Inhaled Oxygen Concentration - - Weight 108.4 kg (239 lb) 09/05/2024 11:23 AM COUPON COLLECTION CLERK Height - - Body Mass Index - - Plan of Treatment Health Maintenance Due Date Last Done Comments Cervical Cancer Screening 1996 Depression Screening 1996 Hepatitis C Screening 1996 Varicella Vaccines (1 of 2 - 13+ 2-dose series) 2009 Regular Well Visit/Exam 18-64 2014 Covid-19 Vaccine (4 - 2024- season) 2025 06/03/2021, 09/29/2020, 09/08/2020 Influenza Vaccine (#1) 2025 , 04/06/2020, 10/11/2019, Additional history exists DTaP/Tdap/Td Vaccine (3 - Td or Tdap) 05/03/2034 05/03/2024, 01/04/2014 Hepatitis B Screening Completed 01/04/2014 HPV Vaccines Completed 07/02/2021, 0412/2019, 05/31/2019 Pneumococcal vaccine <65 Aged Out No longer eligible based on patient's age to complete this topic Insurance [facility] Care Teams Pocket Flap Creasing Machine Operator Relationship Specialty Start Date End Date Unknown, Notinfile PCP - General 09/05/24
--- OUTSIDE RECORDS SUMMARY | 2025-05-02 16:50 | XMS_ITS | Encounter Summary ---
Author Organization [facility] Address [address] [place] [address] Care Team Providers Care Gymnastic Teacher Name Role Phone Charla Arriaga MD Primary Care Provider [phone] Encounter Details Date Type Department Care Team (Late st Contact Info) Description 12/18/2016 Orders Only Internal Medicine - [facility] [address] [facility] [address] [place], [place] [address] Mayra Montana MD PPD positive Social History Tobacco Use Types Packs/Day Years Used Date Smoking Tobacco: Never Smokeless Tobacco: Never Alcohol Use Standard Drinks/Week Comments Yes 1 (1 standard drink = 0.6 oz pur e alcohol) socially Comments No Sex and Gender Information Value Date Recorded Sex Assigned at Not on file Legal Sex Female 10:15 AM RADAR SIGNAL PROCESSING ENGINEER Gender Identity Not on file Sexual [...] of Assessment Author No 12/12/2016 8:39 AM Littel Ghotra * Problems with daily activities? Answer Date of Assessment Author No 12/12/2016 8:39 AM Little Ghotra documented as of this encounter Mental Status * Memory Problems? Answer Entry Date Author No 12/12/2016 8:39 AM CDT Little Cardona documented in this encounter Progress Notes * Brianda Ugalde - 08/13/2017 4:16 PM CST Patient had a follow up office visit R SIGNAL PROCESSING ENGINEER * Sneha Vargas - 12/24/2016 4:02 PM [...] request. She was wondering if she should slat pickler the form and take it with her to ID * Mayra Montana - 12/24/2016 2:59 PM CDTQuick Note: Please contact pt with ID referral for this positive test. Even though she was born in the 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
--- OUTSIDE RECORDS SUMMARY | 2025-05-02 16:50 | XMS_ITS | Encounter Summary ---
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 Answer Date of Assessment [...] Qualitative Nonreactive Nonreactive 10/08/2019 2:01 PM CDT [facility] Comment:5TH generation HIV t esting HIV Antigen-Antibod y Quantitative 0.2 1DX 10/08/2019 2:01 PM CDT [facility] Blood Venipuncture / Unknown 10/07/2019 12:06 PM CDT 10/07/2019 12:06 PM CDT Charla Arriaga MD LAB BLOOD ORDERABLES Final Resu lt Performing Organization Address City/[facility] Co de Phone Number [facility] [address] [phone] * (ABNORMAL) ALT (SGPT) (10/07/2019 12:06 PM CDT) ALT 40(H) 0 - 33 U/L 10/07/2019 12:43 PM CDT [facility] Blood Venipuncture / Unknown 10/07/2019 12:06 PM CDT 10/07/2019 12:06 PM CDT Charla Arriaga MD LAB BLOOD ORDERABLES Final Resu lt Performing Organization Address [facility] de Phone Number [facility] [address] [phone] * BASIC METABOLIC PANEL (8) (10/07/2019 12:06 PM CDT) Patient Fasting? Yes 10/07/2019 12:40 PM CDT [facility] Sodium 138 136 - 145 mmol/L 10/07/2019 12:40 PM CDT [facility] Potassium 4.39 3.50 - 5.10 mmol/L 10/07/2019 12:40 PM CDT [facility] Chloride 101 98 - 107 mmol/L 10/07/2019 12:40 PM CDT [facility] Carbon Dioxide 27.0 22.0 - [...] 12:06 PM CDT 10/07/2019 12:06 PM CDT us Charla Arriaga MD LAB BLOOD ORDERABLES Final Resu lt [facility] [address] [phone] * (ABNORMAL) LIPID PANEL (10/07/2019 12:06 PM [...] <=200.00 mg/dL 10/07/2019 12:43 PM CDT [facility] Calculated LDL 108 <=130 mg/dL 10/07/2019 12:43 PM CDT [facility] Total Chol/HDL Ratio 5 10/07/2019 12:43 PM CDT [facility] Calculated VLDL 59(H) <=30 mg/dL 10/07/2019 12:43 PM CDT [facility] Blood Venipuncture / Unknown 10/07/2019 12:06 PM CDT 10/07/2019 12:06 PM CDT Charla Arriaga MD LAB BLOOD ORDERABLES Final Resu lt Performing Organization Address [facility]/ZIP Co de Phone Number [facility] [address] [phone] * HCV ANTIBODY (10/07/2019 12:06 PM CDT) Hepatitis C Virus Antibody Nonreactive Nonreactive 10/07/2019 1:00 PM CDT [facility] Blood Venipuncture / Unknown 10/07/2019 12:06 PM CDT 10/07/2019 12:06 PM CDT Charla Arriaga MD LAB BLOOD ORDERABLES Final Resu lt Performing Organization Address [facility] Co de Phone Number [facility] [address] [phone] * T PALLIDUM SCREENING CASCADE (10/07/2019 12:06 PM CDT) Syphilis-Total Qualitative Nonreactive Nonreactive 10/08/2019 2:00 PM CDT [facility] Syphilis-Total Quantitative <0.2 AI 10/08/2019 2:00 PM CDT [facility] Blood Venipuncture / Unknown 10/07/2019 12:06 PM CDT 10/07/2019 12:06 PM CDT Charla Arriaga MD LAB BLOOD ORDERABLES Final Resu lt [facility] [address] [phone] documented in this encounter Visit Diagnoses Diagnosis Routine screening for STI (sexually transmitted infection) Screening examination for venereal disease Encounter for screening for lipid disorder Screening for endocrine/metabolic/immunity disorders Screening for other and unspecified endocrine, nutritional, metabolic, and immunity disorders documented in this encounter Care Teams Charge Entry Specialist Relationship Specialty Start Date End Date Charla Arriaga MD [address] [facility] [address] [place] [address] PCP - General Family Practice 06/28/21 documented as of this encounter
--- OUTSIDE RECORDS SUMMARY | 2025-05-02 16:50 | XMS_ITS | Clinical Summary ---
Author Organization [facility] Address [address] [place] [address] Care Team Providers Care Rotary Furnace Tender Name Role Phone Pcp-Interviewed, Non [facility] Primar y Care Provider [...] Tdap) 01/05/2024 01/04/2014 COVID-19 Vaccine (4 - 2024-2 6 season) 2025 06/03/2021, 09/29/2020, 09/08/2020 Influenza Vaccine (#1) 2025 , 04/06/2020, 01/04/2014 HPV Vaccines (Age 27-45) Completed 021, 10/11/2019, 05/31/2019 Meningococcal B Aged Out No longer el igible based on patient's age to complete this topic Pneumococcal 7-64 Aged Out No longer eligible based on patient's age to complete this topic RSV Vaccine (Pediatric) Aged Out No l onger eligible based on patient's age to complete this topic [place] [address] [address] Care Teams Rotary Furnace Tender Relationship Specialty Start Date End Date Pcp-Interviewed, Non [place] [facility] [address] [place] [address] PCP - General 10/17/21
[2025-05-02 17:03] LABS: BEDSIDEPREGUCG Negative (Negative)
[2025-05-02 17:08] LABS: Add Urine Microscopic? YES; Appearance Urine Cloudy (Clear); Glucose Urine UA Negative (Negative); Leukocyte Esterase Ur Negative LEU/UL (Negative); Nitrate Urine Negative (Negative); Non Pathogenic Casts 0-2; Specific Grav Ur 1.021 (1.001-1.035)
[2025-05-02 17:21] LABS: Band Neutrophils Percent 11 % (0-6); Eosinophils Absolute Manual 0.41 K/mm3 (0.02-0.50); Eosinophils Percent Manual 1 % (0-4); Lymphocytes Absolute Manual 10.47 K/mm3 (1.1-4.5); Lymphocytes Percent Manual 25.0 % (18-44); Metamyelocytes Percent 3 %; Monocytes Absolute Manual 0.83 K/mm3 (0.1-0.90); Monocytes Percent Manual 2 % (3-9); Neutrophils Absolute Manual 28.91 K/mm3 (1.3-6.7); Neutrophils Percent Manual 58 % (46-73); Schistocytes None Seen; Total Cells Counted 100
--- OUTSIDE RECORDS SUMMARY | 2025-05-02 17:21 | XMS_ITS | Clinical Summary ---
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 Gender Identity Not on file Sexual Orientation Not on file Last Filed Vital Signs Vital Sign Reading Time Taken Comments Blood Pressure 134/83 08/30/2024 3:27 PM FERMENTER HELPER Pulse 87 08/30/2024 3:27 PM FERMENTER HELPER Temperature 36.7 C (98 F) 08/30/2024 3:27 PM FERMENTER HELPER Respiratory Rate 16 08/30/2024 3:27 PM FERMENTER HELPER Oxygen Saturation 100% 07/02/2021 9:50 AM FERMENTER HELPER Inhaled Oxygen Concentration - - Weight 107.9 kg (237 lb 12.8 oz) 08/30/2024 3:27 PM FERMENTER HELPER Height 170.2 cm (5' 7) 08/30/2024 3:27 PM FERMENTER HELPER Body Mass Index 37.24 08/30/2024 3:27 PM FERMENTER HELPER Plan of Treatment Health Maintenance Due Date [...] PATIENT 18-39 YRS Routine 08/30/2024 4:29 PM FERMENTER HELPER Routine general medical examination at a health care facility PAP WITH REFLEX TO HPV WHEN ASC-U, THINPREP Routine 06/14/2019 3:37 PM FERMENTER HELPER Screening for cervical cancer from Last 3 Months or Most Recently Relevant to Health Maintenance Results * THINPREP PAP- RFX TO HPV IF ASCU (06/14/2019 3:37 PM FERMENTER HELPER) DIAGNOSIS: Comment 06/16/2019 4:07 PM FERMENTER HELPER [facility] ([facility]) Comment:NEGATIVE FOR INTRAEP ITHELIAL LESION OR MALIGNANCY. Specimen adequacy: Comment 2018 4:07 PM FERMENTER HELPER [facility] ([facility]) Comment: Satisfactory for evaluation. Endocervical and/or squamous metaplastic cells (endocervical component) are present. Clinician provided ICD10: Comment 06/16/2019 4:07 PM FERMENTER HELPER [facility] ([facility]) Comment:Z12.4 Performed by: Comment 06/16/2019 4:07 PM FERMENTER HELPER [facility]) Comment:Thompson Mccloud totechnologist (ASCP) . . 06/16/2019 4:07 PM FERMENTER HELPER [facility]) Note: Comment 06/16/2019 4:07 PM FERMENTER HELPER [facility]) Comment: The Pap smear is a screening test designed to aid in the detection of premalignant and malignant conditions of the uterine cervix. It is not a diagnostic procedure and should not be used as the sole means of detecting cervical cancer. Both false-positive and false-negative reports do occur. Test Methodology: Comment 019 4:07 PM FERMENTER HELPER [facility] ([facility]) Comment: This liquid based ThinPrep(R) pap test was screened with the use of an image guided system. . Comment 06/16/2019 4:07 PM FERMENTER HELPER [facility] ([facility]) Comment: The HPV DNA reflex criteria were not met with this specimen result therefore, no HPV testing was performed. Other CERVICAL SWAB / Unknown 06/14/2019 3:37 PM FERMENTER HELPER 06/14/2019 3:37 PM FERMENTER HELPER Narrative [facility] ([facility]) - 06/16/2019 4:07 PM FERMENTER HELPER Performed at: 01 - [facility] [id number] Deputy Sheriff Custody: Taylor Blanco MD, Phone: [phone] Specimen Comment: No. of containers..01 ThinPrep Vial Charla Arriaga MD PATHOLOGY/CYTOLOGY ORDERABLES F inal Result [facility]) from Last 3 Months or Most Recently Relevant to Health Maintenance Insurance [facility] [id number] Care Teams Can Line Examiner Relationship Specialty Start Date End Date Charla Arriaga MD [address] [facility] [address] [place] [address] PCP - General Family Practice 06/28/21
--- OUTSIDE RECORDS SUMMARY | 2025-05-02 17:21 | XMS_ITS | Encounter Summary ---
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 Gender Identity Not on file Sexual Orientation [...] ORDERABLES Final Resul t Performing Organization Address City/State/[facility] Co de Phone Number [facility] [address] [place] [address] * HIV AG AB COMBO (04/24/2017 10:02 AM CDT) HIV Antigen Antibody Combo Non-Reacti ve Non-Reacti ve 04/24/2017 6:31 PM CDT [facility] Blood Venipuncture / Unknown 04/24/2017 10:02 AM CDT 04/24/2017 10:02 AM CDT us Mayra Montana MD LAB BLOOD ORDERABLES Final Resul t [facility] [address] [place], [place] [phone] documented in this encounter Visit Diagnoses Diagnosis Screening for HIV (human immunodeficiency virus) Special screening examination for other specified viral diseases At risk for sexually transmitted disease due to unprotected sex documented in this encounter Care Teams Gas Reverser Relationship Specialty Start Date End Date Charla Arriaga MD [address] [facility] [address] [place], [place] [id number] PCP - General Family Practice 06/28/21 documented as of this encounter
--- OUTSIDE RECORDS SUMMARY | 2025-05-02 17:21 | XMS_ITS | Encounter Summary ---
Author Organization [facility] Address [address] [place] [address] Care Team Providers Care Chief Of Police Name Role Phone Charla Arriaga MD Primary Care Provider [phone] Encounter Details Date Type Department Care Team (Late st Contact Info) Description 06/07/2016 Orders Only Family Medicine - 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 documented as of this encounter Mental Status * Memory Problems? Answer Entry Date Author No 06/06/2016 3:11 PM NEWBORN PHOTOGRAPHER Little Cardona. documented in this encounter Progress Notes * Oly Lala RN - 06/14/2016 6:27 AM CSTQuick Note: This has been taken care of through pt eamil already on . ORN PHOTOGRAPHER * Mayra Montana - 06/11/2016 10:28 AM CSTQuick Note: Ordering additional thyroid function test to evaluate abnormal TSH. Please contact pt to go for additional labs, then follow up in office. ORN PHOTOGRAPHER documented in this encounter Plan of Treatment Not on file documented as of this encounter Procedures Procedure Name Priority Date/Time Associated Diagnosis Comments COMPLETE BLOOD COUNT (CBC) WITH DIFFERENTIAL Routine 06/07/2016 8:17 AM NEWBORN PHOTOGRAPHER Screening for disorder of blood and blood-forming organs RAPID HIV Routine 06/07/2016 8:17 AM NEWBORN PHOTOGRAPHER Screening for HIV (human immunodeficiency virus) COMPREHENSIVE METABOLIC PANEL Routine 06/07/2016 8:17 AM NEWBORN PHOTOGRAPHER Screening for endocrine/metabolic/imm unity disorders LIPID PANEL Routine 06/07/2016 8:17 AM NEWBORN PHOTOGRAPHER Encounter for screening for lipid disorder THYROID- STIMULATION HORMONE (TSH) Routine 06/07/2016 8:17 AM NEWBORN PHOTOGRAPHER Thyroid disorder screen CBC WITH DIFFERENTIAL WITH PLATELET Routine 06/07/2016 8:17 AM NEWBORN PHOTOGRAPHER Screening for disorder of blood and blood-forming organs documented in this encounter Results * (ABNORMAL) CBC W/ DIFFERENTIAL (06/07/2016 8:17 AM NEWBORN PHOTOGRAPHER) WBC 6.56 4.10 - 11.30 10*3/uL 06/07/2016 8:31 AM NEWBORN PHOTOGRAPHER [facility] RBC 5.32(H) 3.81 - 5.20 10*6/uL 06/07/2016 8:31 AM NEWBORN PHOTOGRAPHER [facility] Hemoglobin 14.2 11.6 - 16.0 g/dL 06/07/2016 8:31 AM NEWBORN PHOTOGRAPHER [facility] Hematocrit 43.7 34.0 - 48.0 % 06/07/2016 8:31 AM NEWBORN PHOTOGRAPHER [facility] MCV 82.1 79.0 - 99.0 fL 06/07/2016 8:31 AM NEWBORN PHOTOGRAPHER [facility] MCH 26.7 26.0 - 32.5 pg 06/07/2016 8:31 AM NEWBORN PHOTOGRAPHER [facility] MCHC 32.5 31.8 - 36.0 g/dL 06/07/2016 8:31 AM NEWBORN PHOTOGRAPHER [facility] Platelet Count 236 145 - 450 10*3/uL 06/07/2016 8:31 AM NEWBORN PHOTOGRAPHER [facility] RDW 13.1 11.2 - 14.4 % 06/07/2016 8:31 AM NEWBORN PHOTOGRAPHER [facility] MPV 9.8 7.0 - 11.5 fL 06/07/2016 8:31 AM NEWBORN PHOTOGRAPHER [facility] Neutrophils Absolute 3.69 1.70 - 8.50 10 3/ L 06/07/2016 8:31 AM NEWBORN PHOTOGRAPHER [facility] Lymphocytes Absolute 2.16 0.80 - 4.50 10*3/uL 06/07/2016 8:31 AM NEWBORN PHOTOGRAPHER [facility] Monocytes Absolute 0.46 0.20 - 0.70 10*3/uL 06/07/2016 8:31 AM NEWBORN PHOTOGRAPHER [facility] Eosinophils Absolute 0.22 0.00 - 0.40 10*3/uL 06/07/2016 8:31 AM NEWBORN PHOTOGRAPHER [facility] Basophils Absolute 0.03 0.00 - 0.20 10*3/uL 06/07/2016 8:31 AM NEWBORN PHOTOGRAPHER [facility] nRBC Absolute 0.000 0.000 - 0.012 10*3/uL 06/07/2016 8:31 AM NEWBORN PHOTOGRAPHER [facility] Neutrophils % 56.2 % 06/07/2016 8:31 AM NEWBORN PHOTOGRAPHER [facility] Lymphocytes % 32.9 % 06/07/2016 8:31 AM NEWBORN PHOTOGRAPHER [facility] Monocytes % 7.0 % 06/07/2016 8:31 AM NEWBORN PHOTOGRAPHER [facility] Eosinophils % 3.4 % 06/07/2016 8:31 AM NEWBORN PHOTOGRAPHER [facility] Basophils % 0.5 % 06/07/2016 8:31 AM NEWBORN PHOTOGRAPHER [facility] nRBC/100 WBC 0.00 /100WBC 06/07/2016 8:31 AM NEWBORN PHOTOGRAPHER [facility] Blood Venipuncture / Unknown 06/07/2016 8:17 AM NEWBORN PHOTOGRAPHER 06/07/2016 8:17 AM NEWBORN PHOTOGRAPHER us Mayra Montana MD LAB BLOOD ORDERABLES Final Resul t [facility] [address] [place], [place] [address] [phone] * HIV-1/HIV-2 SINGLE ASSAY (06/07/2016 8:17 AM NEWBORN PHOTOGRAPHER) Pathologist [facility] Rapid HIV Nonreactive Nonreactive 06/07/2016 1:15 PM NEWBORN PHOTOGRAPHER [facility] Blood Venipuncture / Unknown 06/07/2016 8:17 AM NEWBORN PHOTOGRAPHER 06/07/2016 8:17 AM NEWBORN PHOTOGRAPHER us Mayra Montana MD LAB BLOOD ORDERABLES Final Resul t Performing Organization Address [facility] Co de Phone Number [facility] [address] [place] [address] * (ABNORMAL) ASSAY, THYROID STIM HORMONE (06/07/2016 8:17 AM NEWBORN PHOTOGRAPHER) Pathologist [facility] TSH 3.836(H) 0.358 - 3.74 uIU/mL 06/07/2016 11:36 AM NEWBORN PHOTOGRAPHER [facility] Blood Venipuncture / Unknown 06/07/2016 8:17 AM NEWBORN PHOTOGRAPHER 06/07/2016 8:17 AM NEWBORN PHOTOGRAPHER us Mayra Montana MD LAB BLOOD ORDERABLES Final Resul t Performing Organization Address City/[facility]/ZIP Co de Phone Number [facility] [address] [place], [place] [address] [phone] * (ABNORMAL) COMP METABOLIC PANEL (14) (06/07/2016 8:17 AM NEWBORN PHOTOGRAPHER) Glucose 103(H) 65 - 99 mg/dL 06/07/2016 10:06 AM NEWBORN PHOTOGRAPHER [facility] Blood Urea Nitrogen 10 7 - 18 mg/dL 06/07/2016 10:06 AM NEWBORN PHOTOGRAPHER [facility] Creatinine 0.79 0.55 - 1.30 mg/dL 06/07/2016 10:06 AM NEWBORN PHOTOGRAPHER [facility] Comment:Traceable to IDMS Sodium 140 135 - 145 mmol/L 06/07/2016 10:06 AM NEWBORN PHOTOGRAPHER [facility] Potassium 4.3 3.5 - 5.1 mmol/L 06/07/2016 10:06 AM NEWBORN PHOTOGRAPHER [facility] Chloride 104 98 - 107 mmol/L 06/07/2016 10:06 AM NEWBORN PHOTOGRAPHER [facility] Carbon Dioxide 28 21 - 32 mmol/L 06/07/2016 10:06 AM NEWBORN PHOTOGRAPHER [facility] Corrected Calcium 9.3 8.5 - 10.1 mg/dL 06/07/2016 10:06 AM NEWBORN PHOTOGRAPHER [facility] Comment:Corrected Calcium Fo rmula: ((4.0 - Albumin) x 0.8) + Calcium) Note: Calculation is only valid when Albumin is less than 4.0 g/dL Total Protein 7.4 6.4 - 8.2 g/dL 06/07/2016 10:06 AM NEWBORN PHOTOGRAPHER [facility] Albumin 3.8 3.4 - 5.0 g/dL 06/07/2016 10:06 AM NEWBORN PHOTOGRAPHER [facility] Bilirubin, Total 0.33 0.20 - 1.00 mg/dL 06/07/2016 10:06 AM NEWBORN PHOTOGRAPHER [facility] Alkaline Phosphatase 81 46 - 116 U/L 06/07/2016 10:06 AM NEWBORN PHOTOGRAPHER [facility] AST 25 15 - 37 U/L 06/07/2016 10:06 AM NEWBORN PHOTOGRAPHER [facility] ALT 54 12 - 60 U/L 06/07/2016 10:06 AM NEWBORN PHOTOGRAPHER [facility] GFR CKD-EPI 108.10 >=60.00 mL/min/1.7 3 m 06/07/2016 10:06 AM NEWBORN PHOTOGRAPHER [facility] Comment: Estimated GFR units: mL/min/1.73 square meters eGFR calculated by the CKD-EPI equation. Blood Venipuncture / Unknown 06/07/2016 8:17 AM NEWBORN PHOTOGRAPHER 06/07/2016 8:17 AM NEWBORN PHOTOGRAPHER us Mayra Montana MD LAB BLOOD ORDERABLES Final Resul t [facility] [address] [phone] * (ABNORMAL) LIPID PANEL (06/07/2016 8:17 AM NEWBORN PHOTOGRAPHER) Triglycerides 242(H) 30 - 150 mg/dL 06/07/2016 10:16 AM NEWBORN PHOTOGRAPHER [facility] Direct HDL 39(L) 40 - 60 mg/dL 06/07/2016 10:16 AM NEWBORN PHOTOGRAPHER [facility] Comment:Guidelines for high density lipoprotein (HDL) are adapted from the National Cholesterol Education Program (NCEP).Values >60 mg/dL are considered a negative risk factor for coronary heart disease (CHD) and are considered protective. Risk Factor 4.5 <5.0 06/07/2016 10:16 AM NEWBORN PHOTOGRAPHER [facility] Cholesterol 177 0 - 200 mg/dL 06/07/2016 10:16 AM NEWBORN PHOTOGRAPHER [facility] Calculated LDL 89.6 0 - 100 mg/dL 06/07/2016 10:16 AM NEWBORN PHOTOGRAPHER [facility] Blood Venipuncture / Unknown 06/07/2016 8:17 AM NEWBORN PHOTOGRAPHER 06/07/2016 8:17 AM NEWBORN PHOTOGRAPHER Mayra Montana MD LAB BLOOD ORDERABLES Final Resul t Performing Organization Address City/State/[facility] Co de Phone Number [facility] [address] [phone] documented in this encounter Visit Diagnoses Diagnosis [...] diseases documented in this encounter Care Teams Chief Of Police Relationship Specialty Start Date End Date Charla Arriaga MD [address] [facility] [address] [place] [address] PCP - General Family Practice 06/28/21 documented as of this encounter
--- OUTSIDE RECORDS SUMMARY | 2025-05-02 17:21 | XMS_ITS | Encounter Summary ---
Author Organization [facility] Address [address] [place] [address] Care Team Providers Care Commissions Manager Name Role Phone Charla Arriaga MD Primary Care Provider [phone] Encounter Details Date Type Department Care Team (Late st Contact Info) Description 05/01/2017 Orders Only [facility] [place] [address] [place] [address] Ambrosio Gaspar MD LTBI (latent tuberculosis infection) Social History Tobacco Use Types Packs/Day Years Used Date Smoking Tobacco: Never Smokeless Tobacco: Never Alcohol Use Standard Drinks/Week Comments Yes 1 (1 standard drink = 0.6 oz pur e alcohol) socially Comments No Sex and Gender Information Value Date Recorded Sex Assigned at Not on file Legal Sex Female 10:15 AM CUSTODIAL ENGINEER Gender Identity Not on file Sexual [...] 05/01/2017 1:36 PM CDT [facility] [place] 1.021 1.001 - 1.030 05/01/2017 1:36 PM [...] Ambrosio Gaspar MD URINE ORDERABLES Final Result [facility] [address] [place] [address] documented in this encounter Visit Diagnoses Diagnosis LTBI (latent tuberculosis infection) Nonspecific reaction to tuberculin skin test without active tuberculosis documented in this encounter Care Teams Commissions Manager Relationship Specialty Start Date End Date Charla Arriaga MD [address] [facility] [address] [place] [address] PCP - General Family Practice 06/28/21 documented as of this encounter
--- OUTSIDE RECORDS SUMMARY | 2025-05-02 17:21 | XMS_ITS | Encounter Summary ---
Author Organization [facility] Address [address] [place] [address] Care Team Providers Care Beauty Culturist Name Role Phone Charla Arriaga MD Primary Care Provider Encounter Details Date Type Department Care Team (Late st Contact Info) Description 12/18/2016 Orders Only Internal Medicine - [facility] [address] [facility] [address] [place], [place] [id number] Mayra Montana MD PPD positive Social History Tobacco Use Types Packs/Day Years Used Date Smoking Tobacco: Never Smokeless Tobacco: Never Alcohol Use Standard Drinks/Week Comments Yes 1 (1 standard drink = 0.6 oz pur e alcohol) socially Comments No Sex and Gender Information Value Date Recorded Sex Assigned at Not on file 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 She was wondering if she should warp picker the form and take it with her to ID * Mayra Montana - 12/24/2016 2:59 PM CDTQuick Note: Please contact pt with ID referral for this positive test. Even though she was born in the [facility], and probably was vaccinated with BCG [...] (ABNORMAL) QUANTIFERON TB (12/18/2016 1:34 PM CDT) [facility] Quantiferon TB Gold In-Tube Positive( A) [...] Mycobacterium tuberculosis Infection --- [place], 2010 (http://www.cdc.gov/mmwr/preview/mmwrhtml/nx0442x4.htm), for information concerning test performance in low-prevalence [...] CDT Mayra Montana MD LAB BLOOD ORDERABLES Final Resul t [facility] [address] [place] [address] documented in this encounter Visit Diagnoses Diagnosis PPD positive Nonspecific reaction to tuberculin skin test without active tuberculosis documented in this encounter Care Teams Beauty Culturist Relationship Specialty Start Date End Date Charla Arriaga MD [address] [facility] [address] [place], [place] [id number] PCP - General Family Practice 06/28/21 documented as of this encounter
--- OUTSIDE RECORDS SUMMARY | 2025-05-02 17:21 | XMS_ITS | Encounter Summary ---
Author Organization [facility] Address [address] [place] [address] Care Team Providers Care Embossed Or Impressed Lettering Painter Name Role Phone Charla Arriaga MD Primary Care Provider [phone] Encounter Details Date Type Department Care Team (Late st Contact Info) Description 05/06/2017 Orders Only Family Medicine - [facility] [address] [facility] [address] [place], [place] [address] Mayra Montana MD Chlamydial infection Social History Tobacco Use Types Packs/Day Years Used Date Smoking Tobacco: Never Smokeless Tobacco: Never Alcohol Use Standard Drinks/Week Comments Yes 1 (1 standard drink = 0.6 oz pur e alcohol) socially Comments No Sex and Gender Information Value Date Recorded Sex Assigned at Not on file Legal Sex Female 10:15 AM MERCHANDISE MARKER Gender Identity Not on file Sexual Orientation [...] MyChart use confirmed by report in Epic. HANDISE MARKER * Mayra Montana - 05/08/2017 1:04 PM [...] RNA Negative Negative 05/07/2017 2:32 PM CDT [facility] Neisseria Gonorrhoeae Amplified RNA Negative Negative 05/07/2017 2:32 PM CDT [facility] Chlam/GC Source Urine 7 2:32 PM CDT [facility] Other URINE SPECIMEN / Unknown 05/06/2017 1:54 PM CDT 05/06/2017 1:54 PM CDT Narrative [facility] - 05/07/2017 2:32 PM CDT This test is a modified FDA-approved assay and its performance characteristics determined by [facility]. Results should be interpreted in conjunction with patient's clinical findings. This laboratory is certified under the Clinical Laboratory Improvement Amendments of 1988 (CLIA-88) as qualified to perform high complexity clinical laboratory testing. us Mayra Montana MD MICROBIOLOGY ORDERABLES Final Re sult [facility] [address] [place] [address] documented in this encounter Visit Diagnoses Diagnosis Chlamydial infection Unspecified chlamydial infection, in conditions classified elsewhere and of unspecified site documented in this encounter Care Teams Embossed Or Impressed Lettering Painter Relationship Specialty Start Date End Date Charla Arriaga MD [address] [place] [address] PCP - General Family Practice 06/28/21 documented as of this encounter
--- OUTSIDE RECORDS SUMMARY | 2025-05-02 17:21 | XMS_ITS | Encounter Summary ---
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 Answer Date of Assessment Author Yes 08/30/2024 5:00 PM SAUSAGE WRAPPER Umm Franklin CMA * Vision Problems? Answer [...] Communication sent to patient/pharmacy via letter or [employer] Last Time Medication was Filled: 11/15/24- external [...] on filedocumented in this encounter Care Teams Lumber Handler Relationship Specialty Start Date End Date Charla Arriaga MD [address] [facility] [address] [place] [address] PCP - General Family Practice 06/28/21 documented as of this encounter
--- OUTSIDE RECORDS SUMMARY | 2025-05-02 17:21 | XMS_ITS | Encounter Summary ---
Author Organization [facility] Address [address] [place] [address] Care Team Providers Care Shirt Hemmer Name Role Phone Charla Arriaga MD Primary Care Provider [phone] Encounter Details Date Type Department Care Team (Late st Contact Info) Description 04/29/2017 Orders Only [facility] - [facility] [place] [address] [place] [address] Ambrosio Gaspar MD LTBI (latent tuberculosis infection) Social History Tobacco Use Types Packs/Day Years Used Date Smoking Tobacco: Never Smokeless Tobacco: Never Alcohol Use Standard Drinks/Week Comments Yes 1 (1 standard drink = 0.6 oz pur e alcohol) socially Comments No Sex and Gender Information Value Date Recorded Sex Assigned at Not on file 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 Gender Identity Not on file Sexual Orientation [...] ORDERABLES Final Res ult [facility] [address] [phone] * (ABNORMAL) COMP METABOLIC PANEL (14) (04/29/2017 [...] ORDERABLES Final Res ult [facility] [address] [phone] documented in this encounter Visit Diagnoses Diagnosis LTBI (latent tuberculosis infection) Nonspecific reaction to tuberculin skin test without active tuberculosis documented in this encounter Care Teams Shirt Hemmer Relationship Specialty Start Date End Date Charla Arriaga MD [address] [facility] [address] [place] [address] PCP - General Family Practice 06/28/21 documented as of this encounter
--- OUTSIDE RECORDS SUMMARY | 2025-05-02 17:21 | XMS_ITS | Encounter Summary ---
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 No / Unsure 10/11/2019 1:35 PM CDT documented as of this encounter Functional Status * Hearing Problems? Answer Date of Assessment Author No 07/21/2017 9:20 AM ASPHALT SURFACE HEATER OPERATOR Brit Mckeon * Vision Problems? Answer Date [...] ORDERABLES Final Resu lt Performing Organization Address [facility] Co de Phone Number [facility] [address] [phone] * MUMPS ANTIBODIES, IGG-IMMUNITY (10/11/2019 1:14 PM CDT) Mumps IgG Qualitative Positive Positive 10/11/2019 5:11 PM CDT [facility] Mumps IgG Quantitative 3.8 AI 10/11/2019 5:[address] [facility] Comment: Not Immune/Negative: <=0.8 AI Repeat Testing/Equivocal: 0.9 - 1.0 AI Immune/Positive: >=1.1 AI AI=Antibody Index Blood Venipuncture / Unknown 10/11/2019 1:14 PM CDT 10/11/2019 1:14 PM CDT Charla Arriaga MD LAB BLOOD ORDERABLES Final Resu lt Performing Organization Address [facility] de Phone Number [facility] [address] [phone] * RUBEOLA(MEASLES)ANTIBODIES, IGG-IMMUNITY (10/11/2019 1:14 PM CDT) Measles (Rubeola) IgG Qualitative Positive Positive 10/11/2019 5:11 PM CDT [facility] Measles (Rubeola) IgG Quantitative 2.2 AI 10/11/2019 5:[address] [facility] Comment: Not Immune/Negative: <=0.8 AI Repeat Testing/Equivocal: 0.9 - 1.0 AI Immune/Positive: >=1.1 AI AI=Antibody Index Blood Venipuncture / Unknown 10/11/2019 1:14 PM CDT 10/11/2019 1:14 PM CDT Charla Arriaga MD LAB BLOOD ORDERABLES Final Resu lt Performing Organization Address [facility] de Phone Number [facility] [address] [phone] * VARICELLA IGG (COLLEGE TITER) (10/11/2019 1:14 PM CDT) Varicella zoster Virus IgG Qualitative Positive Positive 10/11/2019 5:11 PM CDT [facility] Varicella zoster Virus IgG Quantitative 5.0 AI 10/11/2019 5:[address] Comment: Not Immune/Negative: <=0.8 AI Repeat Testing/Equivocal: 0.9 - 1.0 AI Immune/Positive: >=1.1 AI AI=Antibody Index Blood Venipuncture / Unknown 10/11/2019 1:14 PM CDT 10/11/2019 1:14 PM CDT Charla Arriaga MD LAB BLOOD ORDERABLES Final Resu lt Performing Organization Address [facility] de Phone Number [facility] [address] [phone] * HEPATITIS B SURFACE ANTIBODY (10/11/2019 1:14 PM CDT) [facility] Heptatitis B Surface Ab Quant 281.7 >8.5 mIU/mL 10/12/2019 4:22 PM CDT [facility] Comment: Not Immune/Nonreactive: <=8.5 mIU/mL Repeat Testing/Indeterminate: 8.6-11.4 mIU/mL Immune/Reactive: >=11.5 mIU/mL Hepatitis B Surface Antibody Reactive Reactive 10/12/2019 4:22 PM CDT [facility] Blood Venipuncture / Unknown 10/11/2019 1:14 PM CDT 10/11/2019 1:14 PM CDT Charla Arriaga MD LAB BLOOD ORDERABLES Final Resu lt Performing Organization Address City/[facility] Co de Phone Number [facility] [address] [place] [address], [facility] [phone] documented in this encounter Visit Diagnoses Diagnosis Immunity status testing Antibody response examination documented in this encounter Care Teams Blockers Skiver Relationship Specialty Start Date End Date Charla Arriaga MD [address] [facility] [address] [place] [address] PCP - General Family Practice 06/28/21 documented as of this encounter
--- OUTSIDE RECORDS SUMMARY | 2025-05-02 17:21 | XMS_ITS | Encounter Summary ---
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
--- OUTSIDE RECORDS SUMMARY | 2025-05-02 17:21 | XMS_ITS | Clinical Summary ---
Author Organization [facility] Address [address] [place] [address] Care Team Providers Care Treating Plant Supervisor Name Role Phone Pcp-Interviewed, Non [place] P[facility] Primar y Care Provider [...] patient's age to complete this topic [place] [address] [place] [address] Care Teams Treating Plant Supervisor Relationship Specialty Start Date End Date Pcp-Interviewed, Non [place] Pcp [facility] [address] [place] [address] PCP - General 10/17/21
--- OUTSIDE RECORDS SUMMARY | 2025-05-02 17:21 | XMS_ITS | Clinical Summary ---
Author Organization [address] Address [address] [place] [address] Care Team Providers Care Manifest Clerk Name Role Phone Unknown, Notinfile Primary Care Provider Unavail able Allergies Active Allergy Reactions Criticality Noted Date Comments Alcohol Hives High 08/11/2023 Palpitations and hives wine is okay Palpitations and hives wine is okay Medications No known medications Active Problems No known active problems Encounters Date Type Department Care Team Description 04/02/2025 12:30 PM CDT Telemedicine [facility] Virtual Care [address] [place] [phone] Ana Hercules NP Acute diarrhea (Primary Dx) 04/02/2025 Patient Self-Triage [facility]/ Phys[facility] [address] [place] [address] Mychart, Generic Provider from Last 3 Months Social History Tobacco Use Types Packs/Day Years Used Date Smoking Tobacco: Never Assessed Comments Unknown Sex and Gender Information Value Date Recorded Sex Assigned at Not on file Legal Sex Female 11:14 AM BIOLOGICAL SCIENCE TECHNICIAN Gender Identity Female 04/02/2025 11:21 AM CDT Sexual Orientation Straight 04/02/2025 11 :21 AM CDT Obstetrics History Last Filed Vital Signs Vital Sign Reading Time Taken Comments Blood Pressure 126/73 09/05/2024 11:23 AM BIOLOGICAL SCIENCE TECHNICIAN Pulse 73 09/05/2024 11:23 AM BIOLOGICAL SCIENCE TECHNICIAN Temperature 36.8 C (98.3 F) 09/05/2024 11:23 AM BIOLOGICAL SCIENCE TECHNICIAN Respiratory Rate 20 09/05/2024 11:23 AM BIOLOGICAL SCIENCE TECHNICIAN Oxygen Saturation 99% 09/05/2024 11:23 AM BIOLOGICAL SCIENCE TECHNICIAN Inhaled Oxygen Concentration - - Weight 108.4 kg (239 lb) 09/05/2024 11:23 AM BIOLOGICAL SCIENCE TECHNICIAN Height - - Body Mass Index - [...] patient's age to complete this topic Insurance [facility] Care Teams Manifest Clerk Relationship Specialty Start Date End Date Unknown, Notinfile PCP - General 09/05/24
--- OUTSIDE RECORDS SUMMARY | 2025-05-02 17:21 | XMS_ITS | Encounter Summary ---
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 Comment:5TH generation HIV t esting HIV Antigen-Antibod y Quantitative 0.2 1DX 10/08/2019 2:01 PM CDT [facility] Blood Venipuncture / Unknown 10/07/2019 12:06 PM CDT 10/07/2019 12:06 PM CDT Charla Arriaga MD LAB BLOOD ORDERABLES Final Resu lt Performing Organization Address City/[facility] Co de Phone Number [facility] [address] [phone] * (ABNORMAL) ALT (SGPT) (10/07/2019 12:06 PM CDT) ALT 40(H) 0 - 33 U/L 10/07/2019 12:43 PM CDT [facility] Blood Venipuncture / Unknown 10/07/2019 12:06 PM CDT 10/07/2019 12:06 PM CDT Charla Arriaga MD LAB BLOOD ORDERABLES Final Resu lt Performing Organization Address [facility] de Phone Number [facility] [address] [phone] * BASIC METABOLIC PANEL (8) (10/07/2019 12:06 [...] Final Resu lt [facility] [address] [phone] * (ABNORMAL) LIPID PANEL (10/07/2019 12:06 PM [...] 108 <=130 mg/dL 10/07/2019 12:43 PM CDT [facility] Total Chol/HDL Ratio 5 10/07/2019 12:43 PM CDT [facility] Calculated VLDL 59(H) <=30 mg/dL 10/07/2019 12:43 PM CDT [facility] Blood Venipuncture / Unknown 10/07/2019 12:06 PM CDT 10/07/2019 12:06 PM CDT Charla Arriaga MD LAB BLOOD ORDERABLES Final Resu lt Performing Organization Address [facility]/ZIP Co de Phone Number [facility] [address] [phone] * HCV ANTIBODY (10/07/2019 12:06 PM CDT) Hepatitis C Virus Antibody Nonreactive Nonreactive 10/07/2019 1:00 PM CDT [facility] Blood Venipuncture / Unknown 10/07/2019 12:06 PM CDT 10/07/2019 12:06 PM CDT Charla Arriaga MD LAB BLOOD ORDERABLES Final Resu lt Performing Organization Address [facility] Co de Phone Number [facility] [address] [phone] * T PALLIDUM SCREENING CASCADE (10/07/2019 12:06 PM CDT) Syphilis-Total Qualitative Nonreactive Nonreactive 10/08/2019 2:00 PM CDT [facility] Syphilis-Total Quantitative <0.2 AI 10/08/2019 2:00 PM CDT [facility] Blood Venipuncture / Unknown 10/07/2019 12:06 PM CDT 10/07/2019 12:06 PM CDT Charla Arriaga MD LAB BLOOD ORDERABLES Final Resu lt [facility] [address] [phone] documented in this encounter Visit Diagnoses Diagnosis Routine screening for STI (sexually transmitted infection) Screening examination for venereal disease Encounter for screening for lipid disorder Screening for endocrine/metabolic/immunity disorders Screening for other and unspecified endocrine, nutritional, metabolic, and immunity disorders documented in this encounter Care Teams Tray Checker Relationship Specialty Start Date End Date Charla Arriaga MD [address] [facility] [address] [place] [address] PCP - General Family Practice 06/28/21 documented as of this encounter
--- OUTSIDE RECORDS SUMMARY | 2025-05-02 17:21 | XMS_ITS | Encounter Summary ---
Author Organization [facility] Address [address] [place] [id number] Care Team Providers Care Belt Turner Name Role Phone Charla Arriaga MD Primary Care Provider [phone] Encounter Details Date Type Department Care Team (Late st Contact Info) Description 06/18/2016 Orders Only Family Medicine - [facility] [address] [facility] [address] [place], [place] [address] Mayra Montana MD Abnormal TSH Social History Tobacco Use Types Packs/Day Years Used Date Smoking Tobacco: Never Smokeless Tobacco: Never Alcohol Use Standard Drinks/Week Comments Yes 0 (1 standard drink = 0.6 oz pur e alcohol) socially Comments No Sex and Gender Information Value Date Recorded Sex Assigned at Not on file Legal Sex Female 10:15 AM 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 ACCOUNTING 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 Gender Identity Not on file Sexual Orientation [...] THYROID ANTIBODIES Routine 06/18/2016 2: 43 PM CHIEF ACCOUNTING OFFICER Abnormal TSH TRIIODOTHYRONINE (T3), FREE Routine 06/18/2016 2:43 PM CHIEF ACCOUNTING OFFICER Abnormal TSH TSH+FREE T4 Routine 06/18/2016 2:43 PM CHIEF ACCOUNTING OFFICER Abnormal TSH documented in this encounter Results * THYROID ANTIBODIES (06/18/2016 2:43 PM CHIEF ACCOUNTING OFFICER) Anti-Thyroglobu chari 21 <60 U/mL 06/19/2016 12:31 AM CHIEF ACCOUNTING OFFICER [facility] Anti-Thyroperox idase <28 <60 U/mL 06/19/2016 12:31 AM CHIEF ACCOUNTING OFFICER [facility] Blood Venipuncture / Unknown 06/18/2016 2:43 PM CHIEF ACCOUNTING OFFICER 06/18/2016 2:43 PM CHIEF ACCOUNTING OFFICER [facility] Mayra Montana MD LABORATORY Final Result [facility] [address] [place] [address] * FREE T3 (TRIIODOTHYRONINE) (06/18/2016 2:43 PM CHIEF ACCOUNTING OFFICER) Free T3 3.10 2.18 - 3.98 pg/mL 06/18/2016 5:09 PM CHIEF ACCOUNTING OFFICER [facility] Blood Venipuncture / Unknown 06/18/2016 2:43 PM CHIEF ACCOUNTING OFFICER 06/18/2016 2:43 PM CHIEF ACCOUNTING OFFICER us Mayra Montana MD LAB BLOOD ORDERABLES Final Resul t [facility] [address] [phone] * TSH+FREE T4 (06/18/2016 2:43 PM CHIEF ACCOUNTING OFFICER) TSH 2.021 0.358 - 3.74 uIU/mL 06/18/2016 5:09 PM CHIEF ACCOUNTING OFFICER [facility] Free T4 1.22 0.76 - 1.46 ng/dL 06/18/2016 5:09 PM CHIEF ACCOUNTING OFFICER [facility] Blood Venipuncture / Unknown 06/18/2016 2:43 PM CHIEF ACCOUNTING OFFICER 06/18/2016 2:43 PM CHIEF ACCOUNTING OFFICER us Mayra Montana MD LAB BLOOD ORDERABLES Final Resul t [facility] [address] [facility] [place] [phone] documented in this encounter Visit Diagnoses Diagnosis Abnormal TSH Other abnormal clinical finding documented in this encounter Care Teams Belt Turner Relationship Specialty Start Date End Date Charla Arriaga MD [address] [facility] [address] [place] [address] PCP - General Family Practice 06/28/21 documented as of this encounter
[2025-05-02 17:22] LABS: Anisocytosis 2+; Hypochromasia 1+
[2025-05-02] MEDS: SODIUM CHLORIDE 0.9% IV 1,000 ML 999 ML IV CONT (17:48)
[2025-05-02 17:55] LABS: Hematocrit 39.1 % (37.0-47.0); Hemoglobin 12.6 g/dL (12.0-15.0); Mean Corpuscular HGB Conc 32.2 g/dl (32-36); Mean Corpuscular Hemoglobin 27.5 pg (26-34); Mean Corpuscular Volume 85.2 fl (80-100); Platelet Count Result 201 k/mm3 (150-375); Red Blood Count 4.59 M/mm3 (4.2-5.4); White Blood Count 43.5 K/mm3 (4.5-10.0)
[2025-05-02 18:07] LABS: INR 1.0; Partial Thromboplastin Time 32.3 Seconds (22.3-36.8); Prothrombin Time 13.3 Seconds (11.1-14.7)
[2025-05-02 18:11] LABS: Negative Monotest Control Negative (Negative); Positive Monotest Control Positive (Positive)
[2025-05-02 18:12] LABS: CRP < 0.5 mg/dL (<1.0)
[2025-05-02 18:16] LABS: Band Neutrophils Percent 11 % (0-6); Eosinophils Absolute Manual 0.43 K/mm3 (0.02-0.50); Eosinophils Percent Manual 1 % (0-4); Lymphocytes Absolute Manual 11.74 K/mm3 (1.1-4.5); Lymphocytes Percent Manual 27.0 % (18-44); Metamyelocytes Percent 3 %; Monocytes Absolute Manual 0.87 K/mm3 (0.1-0.90); Monocytes Percent Manual 2 % (3-9); Neutrophils Absolute Manual 29.14 K/mm3 (1.3-6.7); Neutrophils Percent Manual 56 % (46-73); Schistocytes None Seen; Total Cells Counted 100
[2025-05-02 18:17] LABS: Anisocytosis 2+; Hypochromasia 1+
[2025-05-02 18:26] LABS: Beta HCG Quantitative < 2.39 mIU/ML
[2025-05-02 18:29] LABS: Procalcitonin 0.1 ng/mL
[2025-05-02 18:45] LABS: Thyroid Stimulating Hormone Reflex 2.300 uIU/mL (0.465-4.68)
[2025-05-02] MEDS: KETOROLAC 15 MG/ML VIAL (*BKC) IV PUSH (21:43)
== END 2025-05-02 21:54 | disposition home or self-care (01) ==
PROVIDERS: Nurse Practitioner Adult Health; Emergency Provider Registered Nurse
DX: N94.6 Dysmenorrhea, unspecified (principal); N93.9 Abnormal uterine and vaginal bleeding, unspecified; Z90.721 Acquired absence of ovaries, unilateral
CPT/HCPCS: 36415; 74177; 76830; 76856; 80053; 81001; 81025; 83605; 84145; 84443; 84702; 85025; 85055; 85610; 85652; 85730; 86140; 86308; 86900; 86901; 96361; 96374; 99284; J1885; J7030; Q9967